=== PATIENT | female | born 1980 | race African-American/Black ===

== ENCOUNTER 2018-10-16 17:36 | Inpatient (IN) | payer MEDICAID ==
[~2018-10-16] VITALS: Ht 157.5 cm; Wt 77.1 kg
[2018-10-16] MEDS ORDERED: FUROSEMIDE40 MG ORAL (17:41)
[2018-10-16] MEDS ORDERED: NORVASC10 MG ORAL (17:41)
[2018-10-16] MEDS ORDERED: CARVEDILOL25 MG ORAL (17:41)
[2018-10-16] MEDS ORDERED: CEPHALEXIN500 M1 ORAL (17:41)
[2018-10-16] MEDS ORDERED: METHIMAZOLE10 MG PO (17:41)
[2018-10-16] MEDS ORDERED: LISINOPRIL20 MG ORAL (17:41)
--- NOTE | 2018-10-16 17:44 | Emergency Room Report ---
History of Present Illness General Chief Complaint: Abdominal Pain Source: Patient, EMS Present Illness HPI Patient was discharged after being admitted [facility] for abdominal pain. She's persisted in vomiting and having watery stools. She's taking antibiotics at this time. The pain is mainly in her left flank. Radiates down into her abdomen and groin. The pain is 10/10 aching and sometimes feels like spasms. She's not sure she vomiting blood but she says it' s been yellow in color which is throwing up. She's felt feverish and feels weak at this time. She's not sure what they found at the hospital. She had an abdominal CT. Also she was discharged on lasix. Rx bactrim, keflex which she took this morning. Review of discharge papers reveal mostly discussing the hyperthyroidism. She states some tests were still pending. H/O hyperthyroidism on methimazole H/O HTN On lasix Allergies: Coded Allergies: DIPHENHYDRAMINE (Verified Allergy, Unknown, 10/16/18) LATEX (Verified Allergy, Unknown, 10/16/18) Patient History Past Medical History: see triage record Social History: Denies: smoking Social History Narrative from home Reviewed Nursing Documentation: PMH: Agreed; PSxH: Agreed Nursing Documentation-PMH Hx Cardiac Problems: Yes - CHF Hx Hypertension: No - HYPERTHYROIDISM Review of Systems All Other Systems: negative except mentioned in HPI Physical Exam Vital Signs Date Time Temp Pulse Resp B/P (MAP) Pulse Ox O2 Delivery O2 Flow Rate FiO2 10/16/18 17:31 98.2 81 20 171/92 96 Room Air Sp02 EP Interpretation: reviewed, normal General Appearance: alert, GCS 15, mild distress Head: normocephalic Eyes: bilateral eye normal inspection, bilateral eye PERRL, bilateral eye EOMI , bilateral eye other - exopthalmus ENT: moist mucus membranes Neck: supple, tender - goiter which is not tender Respiratory: lungs clear, normal breath sounds Cardiovascular #1: regular rate, rhythm Cardiovascular #2: 2+ radial (R) Gastrointestinal: normal inspection, normal bowel sounds, no mass, non- distended, no rebound, guarding, tenderness - L abdomen, overweight Genitourinary: other - some CVA tenderness L Musculoskeletal: back normal, gait/station normal, normal range of motion Neurologic: alert, oriented x3, grossly normal Psychiatric: anxious Skin: normal inspection, warm/dry Medical Decision Making Diagnostic Impression: Primary Impression: Abdominal pain Qualified Codes: R10.9 - Unspecified abdominal pain Additional Impressions: Graves disease Vomiting Qualified Codes: R11.2 - Nausea with vomiting, unspecified Leukocytosis Qualified Codes: D72.828 - Other elevated white blood cell count Diarrhea Qualified Codes: R19.7 - Diarrhea, unspecified Hyperthyroidism CHF (congestive heart failure) Qualified Codes: I50.83 - High output heart failure Colitis ER Course Patient with left flank pain after recent discharge from the [facility]. I differential includes renal stone, diverticulitis, C. difficile colitis, gastroenteritis, pyelonephritis amongst others. Evaluation will be with EKG, chest x-ray, abdominal films and labs. Patient will be treated with IV hydration and Reglan and analgesia with fentanyl since she has adverse reactions to morphine. We will attempt to get the CT results of her abdomen from [facility]. Stool ordered for c. difficile. EKG without injury. CXR with some congestive changes. Labs with leukocytosis, elevated BNP, low TSH. Patient still with vomiting and increased pain here. Patient admitted to medical floor. Attempting to get a CT results. With high suspicion for C. difficile, Flagyl given IV. Patient had taken Bactrim and Keflex this morning. Still with pain. Not surgical abdomen but will consult. CT done 10/09 - no significant explanation for pain. Need to repeat. Can be done on floor. Elevated BNP and CXR suggest CHF, consider related to hyperthyroidism. Admit med Dr. Neil. Contact Dr. Camargo for consultation, though not surgical abdomen at this time. Laboratory Tests Test 10/16/18 17:45 White Blood Count 14.0 K/UL (4.8-10.8) H Red Blood Count 4.98 M/UL (4.20-5.40) Hemoglobin 13.4 G/DL (12.0-16.0) Hematocrit 41.4 % (37.0-47.0) Mean Corpuscular Volume 83 FL (80-99) Mean Corpuscular Hemoglobin 26.9 PG (27.0-31.0) L Mean Corpuscular Hemoglobin Concent 32.3 G/DL (32.0-36.0) Red Cell Distribution Width 13.8 % (11.6-14.8) Platelet Count 349 K/UL (150-450) Mean Platelet Volume 7.4 FL (6.5-10.1) Neutrophils (%) (Auto) % (45.0-75.0) Lymphocytes (%) (Auto) % (20.0-45.0) Monocytes (%) (Auto) % (1.0-10.0) Eosinophils (%) (Auto) % (0.0-3.0) Basophils (%) (Auto) % (0.0-2.0) Differential Total Cells Counted 100 Neutrophils % (Manual) 85 % (45-75) H Lymphocytes % (Manual) 12 % (20-45) L Monocytes % (Manual) 3 % (1-10) Eosinophils % (Manual) 0 % (0-3) Basophils % (Manual) 0 % (0-2) Band Neutrophils 0 % (0-8) Platelet Estimate Adequate Platelet Morphology Normal Red Blood Cell Morphology Normal Prothrombin Time 11.9 SEC (9.30-11.50) H Prothrombin Time INR 1.1 (0.9-1.1) PTT 30 SEC (23-33) Urine Color Pale yellow Urine Appearance Clear Urine pH 7 (4.5-8.0) Urine Specific [place] 1.005 (1.005-1.035) Urine Protein Negative (NEGATIVE) Urine Glucose (UA) Negative (NEGATIVE) Urine Ketones 3+ (NEGATIVE) H Urine Blood Negative (NEGATIVE) Urine Nitrite Negative (NEGATIVE) Urine Bilirubin Negative (NEGATIVE) Urine Urobilinogen Normal MG/DL (0.0-1.0) Urine Leukocyte Esterase Negative (NEGATIVE) Sodium Level 137 MMOL/L (136-145) Potassium Level 3.9 MMOL/L (3.5-5.1) Chloride Level 100 MMOL/L (98-107) Carbon Dioxide Level 26 MMOL/L (21-32) Anion Gap 11 mmol/L (5-15) Blood Urea Nitrogen 8 mg/dL (7-18) Creatinine 1.0 MG/DL (0.55-1.30) Estimate Glomerular Filtration Rate > 60 mL/min (>60) Glucose Level 102 MG/DL (74-106) Calcium Level 10.0 MG/DL (8.5-10.1) Total Bilirubin 1.0 MG/DL (0.2-1.0) Aspartate Amino Transferase (AST) 30 U/L (15-37) Alanine Aminotransferase (ALT) 22 U/L (12-78) Alkaline Phosphatase 229 U/L (46-116) H Total Protein 8.9 G/DL (6.4-8.2) H Albumin 3.2 G/DL (3.4-5.0) L Globulin 5.7 g/dL Albumin/Globulin Ratio 0.6 (1.0-2.7) L Lipase 130 U/L (73-393) Human Chorionic Gonadotropin, Qual Negative (NEGATIVE) EKG Diagnostic Results Rate: normal Rhythm: NSR ST Segments: no acute changes Rhythm Strip Diag. Results EP Interpretation: yes Rhythm: NSR, no PVC's, no ectopy Chest X-Ray Diagnostic Results Chest X-Ray Diagnostic Results : Chest X-Ray Ordered: Yes # of Views/Limited/Complete: 1 View Indication: Other EP Interpretation: Yes Interpretation: no consolidation, no effusion, no pneumothorax, other - increased mckenzie bilat Impression: Other Electronically Signed by: Electronically signed by Boubacar Randall MD Other X-Ray Diagnostic Results Other X-Ray Diagnostic Results : X-Ray ordered: abd # of Views/Limited Vs Complete: 2 View Indication: Pain Interpretation: nonspecific bowel gas, no sbo, other - paucity of gas Impression: Other Electronically Signed by: Electronically signed by Boubacar Randall MD CT/MRI/US Diagnostic Results CT/MRI/US Diagnostic Results : Imaging Test Ordered: abdomen/pelvis Impression Long segment severe inflammatory changes involving predominantly 2 loops of distal jejunum with marked mucosal thickening causing significant narrowing of the lumen, perienteric fat stranding, and small volume scattered free fluid. There is no pneumatosis, obstruction, or abscess. Etiology is favored infectious or inflammatory. Pancolonic diverticulosis without diverticulitis. No acute process in the solid organs. Last Vital Signs Date Time Temp Pulse Resp B/P (MAP) Pulse Ox O2 Delivery O2 Flow Rate FiO2 10/17/18 00:08 Room Air 10/16/18 21:00 98.4 83 20 152/88 100 Status: improved Disposition: ADMITTED INPATIENT Condition: Serious Boubacar Randall MD Oct 16, 2018 17:44
[2018-10-16 17:45] VITALS: BP 171/92
[2018-10-16] MEDS ORDERED: fentaNYL 100 mcg/2 mL IV ONE ×2 (17:45→19:45)
[2018-10-16] MEDS ORDERED: Metoclopramide 10mg/2ml Inj IVP ONE (17:45)
[2018-10-16 18:16] LABS: APPEARANCE,URINE CLEAR; BILIRUBIN, URINE NEGATIVE (NEGATIVE); COLOR,URINE PALE YELLOW; GLUCOSE, URINE (UA) NEGATIVE (NEGATIVE); KETONES,URINE 3+ (NEGATIVE); LEUKOCYTE ESTERASE ,URINE NEGATIVE (NEGATIVE); NITRITE,URINE NEGATIVE (NEGATIVE); PH,URINE 7 (4.5-8.0); PROTEIN,URINE NEGATIVE (NEGATIVE); UROBILINOGEN,URINE NORMAL MG/DL (0.0-1.0)
[2018-10-16 18:24] LABS: ANION GAP 11 mmol/L (5-15); BLOOD UREA NITROGEN 8 mg/dL (7-18); CARBON DIOXIDE 26 MMOL/L (21-32); CHLORIDE 100 MMOL/L (98-107); POTASSIUM 3.9 MMOL/L (3.5-5.1); SODIUM 137 MMOL/L (136-145)
[2018-10-16 18:28] LABS: HEMATOCRIT 41.4 % (37.0-47.0); HEMOGLOBIN 13.4 G/DL (12.0-16.0); MEAN CORPUSCULAR VOLUME 83 FL (80-99); PLATELET COUNT 349 K/UL (150-450); RED BLOOD COUNT 4.98 M/UL (4.20-5.40); RED CELL DISTRIBUTION WIDTH 13.8 % (11.6-14.8)
[2018-10-16 18:29] VITALS: BP 166/90
[2018-10-16 18:33] LABS: INR 1.1 (0.9-1.1)
[2018-10-16 18:35] LABS: ALANINE AMINOTRANSFERASE 22 U/L (12-78); ALBUMIN 3.2 G/DL (3.4-5.0); ALBUMIN/GLOBULIN RATIO 0.6 (1.0-2.7); ALKALINE PHOSPHATASE 229 U/L (46-116); ASPARTATE AMINO TRANSFERASE 30 U/L (15-37)
--- NOTE | 2018-10-16 18:44 | NUR ---
ED Nurse Note: pt came in c/o abd pain and left flank pain . pt denies any wounds has hyperthyroidism and a goiter. ermd robbin done blood and urine sent pt medicated vss will monitor.
--- NOTE | 2018-10-16 19:01 | NUR ---
ED Nurse Note: pt down to ct
--- NOTE | 2018-10-16 19:08 | NUR ---
HAND-OFF: Report given to Annie colse.
--- NOTE | 2018-10-16 19:15 | NUR ---
ED Nurse Note: RECIEVED REPORT TO RESUME CARE, PT JUST RETURNING FROM IMAGING, PT PLACED ON CARDIAC MONITORING, PT IS IN BED AWAKE AND ALERT, HAS PATENT IV LINE IN RIGHT AC, PT HERE FOR ABD PAIN AND STATES PAIN AT 7/10 AND SHARP, PT HAD EMESIS SOON RETURNED, ABOUT 300ML OF FOOD LIKE CONTENTS, MD INFORMED, WILL RESUME CARE ORDERED, MEDICATE FOR PAIN AND EMESIS AND CLOSELY MONITOR.
[2018-10-16 21:00] VITALS: BP 152/88
--- NOTE | 2018-10-16 21:00 | NUR ---
ED Nurse Note: PT CONTINUES TO REST IN BED, AWAKE AND ALERT, ON CARDIAC MONITORING, PT IV SITE PATENT WITH FLUIDS INFUSING ORDERED, PT RE-MEDICATED FOR PAIN, MEDS NOT EFFECTIVE MD AWARE, PT DENIES CP, NO SOB OR LABORED BREATHING,PT IS TO BE ADMITTED FOR PAIN, WILL CONTINUE TO CLOSELY MONITOR AND PREPRE FOR ADMISSION.
[2018-10-16] MEDS ORDERED: Hydromorphone 0.5mg/0.5ml inj IVP ONE (21:45)
[2018-10-16] MEDS ORDERED: Miralax 17gm pkt ORAL PRN (22:00)
[2018-10-16] MEDS ORDERED: Morphine Sulfate 2mg/ml Inj(IV/IM USE ONLY) IVP PRN (22:00)
[2018-10-16] MEDS ORDERED: Isovue-300 100ml vial INJ PRN (22:00)
[2018-10-16] MEDS ORDERED: Mylanta II UD 30ml ORAL PRN (22:00)
[2018-10-16] MEDS ORDERED: Nitroglycerin Subl 0.4mg tab SL PRN (22:00)
--- NOTE | 2018-10-16 22:15 | NUR ---
ED Nurse Note: PT TO HAVE ORDERED CT-SCAN, STATES TO HOLD ADMISSION UNTIL PT STARTS DRINKING ORAL CONTRAST, IMAGING ARRIVED AND PT BEGAN TO DRINK ORAL CONTRAST, WILL CALL FOR REPORT AND SEND TO FLOOR BED AND INFORM ONCOMING RN THAT PT WILL HAVE IMAGES DONE AT 1145 TONIGHT.
[2018-10-16] MEDS: D5 1/2NS 1,000 ML IV SCH (22:30)
--- NOTE | 2018-10-16 23:15 | NUR ---
ED Nurse Note: PT BEING ADMITTED TO FLOOR BED, REPORT CALLED TO AKASH RUBIO ON UNIT, ALSO INFORMED THAT PT NEEDS TO DRINK REMAINING ORAL CONTRAST FOR 1145 CT-SCAN, PT IN BED AWAKE AND ALERT, IV SITE PATENT WITH ORDERED FLUIDS INFUSING, TOLERATING WELL, PT BELONGINGS LIST COMPLETED AND ADMITTING SWABS COMPLETED, PT BEING TAKEN TO FLOOR UNIT VIA GURNEY WITH ER-TE[facility], NAD NOTED DURING PT TRANSPORT TO UNIT.
--- NOTE | 2018-10-16 23:41 | NUR ---
NURSE NOTES: Received patient from ER, report given by Annie BUSTOS, patient is awake, a bit sedated, oriented, alert. Able to make her needs known, is scheduled for a CT of an abdomen at 2345, patient is finishing up drinking contrast. Belongings list checked and verified, call light is within reach, bed is in low position, locked, alarm is on. Patient is oriented to the unit. Will continue to monitor for safety and comfort.
[2018-10-17 04:00] VITALS: BP 143/73
[2018-10-17 06:34] LABS: BASOPHILS % (AUTO) 3.2 % (0.0-2.0); EOSINOPHILS % (AUTO) 0.1 % (0.0-3.0); HEMATOCRIT 37.3 % (37.0-47.0); HEMOGLOBIN 12.3 G/DL (12.0-16.0); LYMPHOCYTES % (AUTO) 10.4 % (20.0-45.0); MEAN CORPUSCULAR VOLUME 85 FL (80-99); MONOCYTES % (AUTO) 5.2 % (1.0-10.0); NEUTROPHILS % (AUTO) 81.2 % (45.0-75.0); PLATELET COUNT 298 K/UL (150-450); RED BLOOD COUNT 4.41 M/UL (4.20-5.40); WHITE BLOOD COUNT 13.4 K/UL (4.8-10.8)
[2018-10-17 06:39] LABS: ANION GAP 13 mmol/L (5-15); BLOOD UREA NITROGEN 7 mg/dL (7-18); CALCIUM 8.7 MG/DL (8.5-10.1); CARBON DIOXIDE 24 MMOL/L (21-32); CHLORIDE 102 MMOL/L (98-107); CREATININE 0.8 MG/DL (0.55-1.30); POTASSIUM 4.3 MMOL/L (3.5-5.1); SODIUM 139 MMOL/L (136-145)
[2018-10-17 06:55] LABS: ALANINE AMINOTRANSFERASE 20 U/L (12-78); ALBUMIN 2.7 G/DL (3.4-5.0); ALBUMIN/GLOBULIN RATIO 0.6 (1.0-2.7); ALKALINE PHOSPHATASE 173 U/L (46-116); AMYLASE 18 U/L (25-115); ASPARTATE AMINO TRANSFERASE 39 U/L (15-37)
--- NOTE | 2018-10-17 06:59 | NUR ---
HAND-OFF: Report given to Flavia BUSTOS.
--- NOTE | 2018-10-17 07:40 | NUR ---
NURSE NOTES: pt received sleeping. Easy to arouse. Call light in reach. No complaints of pain nausea or vomiting at this time
[2018-10-17 08:00] VITALS: BP 139/77
--- NOTE | 2018-10-17 08:49 | Consultation ---
History of Present Illness General Date patient seen: Oct 17, 2018 Chief Complaint: Abdominal Pain Present Illness HPI 38 y/o F with hx of HTN, hyperthyroidism on methimazole, CHF presents to ED on with vomiting and having 1 episode of watery stools. Patient has been recently discharged from [facility] for a buttock pilonidal cyst/ abscess (drained by itself) and CHF exacerbation; has gained 50 pounds of water and was given lasix and abx (bactrim and Keflex) for a total of 7 days. Patient refers that she has been trying to keep a fluid restricted diet and 3g sodium and that she ate something with high sugar content and she may have not drink a lot of water and she started to have abd discomfort, nausea and vomiting. 1 episode of diarrhea day of admission. No episodes today. Patient refers feeling better now after IVF hydration. Allergies: Coded Allergies: DIPHENHYDRAMINE (Verified Allergy, Unknown, 10/16/18) LATEX (Verified Allergy, Unknown, 10/16/18) Medication History Scheduled Amlodipine Besylate (Norvasc), 10 MG ORAL DAILY, (Reported) Carvedilol* (Carvedilol*), 25 MG ORAL EVERY 12 HOURS, (Reported) Cephalexin* (Cephalexin*), 500 MG ORAL EVERY 6 HOURS, (Reported) Furosemide* (Lasix*), 40 MG ORAL DAILY, (Reported) Lisinopril (Lisinopril*), 20 MG ORAL DAILY, (Reported) Methimazole (Methimazole), 10 MG PO BID, (Reported) Patient History Healthcare decision maker Resuscitation status Full Code Advanced Directive on File No Patient History Narrative Pmhx: as above Shx: reviewed Fhx: non contributory Review of Systems All Other Systems: negative except mentioned in HPI Physical Exam Physical Exam Narrative General Appearance: alert, GCS 15, mild distress Head: normocephalic Eyes: bilateral eye normal inspection, bilateral eye PERRL, bilateral eye EOMI , bilateral eye other - exopthalmus ENT: moist mucus membranes Neck: supple, tender - goiter which is not tender Respiratory: lungs clear, normal breath sounds Cardiovascular : regular rate, rhythm Gastrointestinal: normal inspection, normal bowel sounds, no mass, non- distended, no rebound, guarding, tenderness - L abdomen, overweight Genitourinary: other - some CVA tenderness L Musculoskeletal: back normal, gait/station normal, normal range of motion Neurologic: alert, oriented x3, grossly normal Psychiatric: anxious Skin: normal inspection, warm/dry Last 24 Hour Vital Signs Date Time Temp Pulse Resp B/P (MAP) Pulse Ox O2 Delivery O2 Flow Rate FiO2 10/17/18 04:00 98.7 18 143/73 (96) 10/17/18 00:08 Room Air 10/16/18 23:20 98.4 83 20 152/88 100 Room Air 10/16/18 21:00 98.4 83 20 152/88 100 Room Air 10/16/18 20:20 98.2 10/16/18 18:29 98.2 80 25 166/90 100 Room Air 10/16/18 18:24 98.2 10/16/18 17:45 81 20 Room Air 10/16/18 17:45 98.2 20 171/92 96 Room Air 10/16/18 17:31 98.2 81 20 171/92 96 Room Air Intake and Output 10/16/18 10/17/18 19:00 07:00 # Voids 1 Laboratory Tests Test 10/16/18 17:45 10/17/18 05:35 White Blood Count 14.0 K/UL (4.8-10.8) H 13.4 K/UL (4.8-10.8) H Red Blood Count 4.98 M/UL (4.20-5.40) 4.41 M/UL (4.20-5.40) Hemoglobin 13.4 G/DL (12.0-16.0) 12.3 G/DL (12.0-16.0) Hematocrit 41.4 % (37.0-47.0) 37.3 % (37.0-47.0) Mean Corpuscular Volume 83 FL (80-99) 85 FL (80-99) Mean Corpuscular Hemoglobin 26.9 PG (27.0-31.0) L 27.8 PG (27.0-31.0) Mean Corpuscular Hemoglobin Concent 32.3 G/DL (32.0-36.0) 32.9 G/DL (32.0-36.0) Red Cell Distribution Width 13.8 % (11.6-14.8) 14.0 % (11.6-14.8) Platelet Count 349 K/UL (150-450) 298 K/UL (150-450) Mean Platelet Volume 7.4 FL (6.5-10.1) 8.7 FL (6.5-10.1) Neutrophils (%) (Auto) % (45.0-75.0) 81.2 % (45.0-75.0) H Lymphocytes (%) (Auto) % (20.0-45.0) 10.4 % (20.0-45.0) L Monocytes (%) (Auto) % (1.0-10.0) 5.2 % (1.0-10.0) Eosinophils (%) (Auto) % (0.0-3.0) 0.1 % (0.0-3.0) Basophils (%) (Auto) % (0.0-2.0) 3.2 % (0.0-2.0) H Differential Total Cells Counted 100 Neutrophils % (Manual) 85 % (45-75) H Lymphocytes % (Manual) 12 % (20-45) L Monocytes % (Manual) 3 % (1-10) Eosinophils % (Manual) 0 % (0-3) Basophils % (Manual) 0 % (0-2) Band Neutrophils 0 % (0-8) Platelet Estimate Adequate Platelet Morphology Normal Red Blood Cell Morphology Normal Prothrombin Time 11.9 SEC (9.30-11.50) H Prothromb Time International Ratio 1.1 (0.9-1.1) Activated Partial Thromboplast Time 30 SEC (23-33) 27 SEC (23-33) Urine Color Pale yellow Urine Appearance Clear Urine pH 7 (4.5-8.0) Urine Specific [place] 1.005 (1.005-1.035) Urine Protein Negative (NEGATIVE) Urine Glucose (UA) Negative (NEGATIVE) Urine Ketones 3+ (NEGATIVE) H Urine Blood Negative (NEGATIVE) Urine Nitrite Negative (NEGATIVE) Urine Bilirubin Negative (NEGATIVE) Urine Urobilinogen Normal MG/DL (0.0-1.0) Urine Leukocyte Esterase Negative (NEGATIVE) Sodium Level 137 MMOL/L (136-145) 139 MMOL/L (136-145) Potassium Level 3.9 MMOL/L (3.5-5.1) 4.3 MMOL/L (3.5-5.1) Chloride Level 100 MMOL/L (98-107) 102 MMOL/L (98-107) Carbon Dioxide Level 26 MMOL/L (21-32) 24 MMOL/L (21-32) Anion Gap 11 mmol/L (5-15) 13 mmol/L (5-15) Blood Urea Nitrogen 8 mg/dL (7-18) 7 mg/dL (7-18) Creatinine 1.0 MG/DL (0.55-1.30) 0.8 MG/DL (0.55-1.30) Estimat Glomerular Filtration Rate > 60 mL/min (>60) > 60 mL/min (>60) Glucose Level 102 MG/DL (74-106) 68 MG/DL (74-106) L Calcium Level 10.0 MG/DL (8.5-10.1) 8.7 MG/DL (8.5-10.1) Total Bilirubin 1.0 MG/DL (0.2-1.0) 1.0 MG/DL (0.2-1.0) Aspartate Amino Transf (AST/SGOT) 30 U/L (15-37) 39 U/L (15-37) H Alanine Aminotransferase (ALT/SGPT) 22 U/L (12-78) 20 U/L (12-78) Alkaline Phosphatase 229 U/L (46-116) H 173 U/L (46-116) H Pro-B-Type Natriuretic Peptide 1155 pg/mL (0-125) H Total Protein 8.9 G/DL (6.4-8.2) H 7.4 G/DL (6.4-8.2) Albumin 3.2 G/DL (3.4-5.0) L 2.7 G/DL (3.4-5.0) L Globulin 5.7 g/dL 4.7 g/dL Albumin/Globulin Ratio 0.6 (1.0-2.7) L 0.6 (1.0-2.7) L Lipase 130 U/L (73-393) 102 U/L (73-393) Thyroid Stimulating Hormone (TSH) 0.021 uiU/mL (0.358-3.740) Human Chorionic Gonadotropin, Qual Negative (NEGATIVE) Amylase Level 18 U/L (25-115) L Height (Feet): 5 Height (Inches): 2.00 Weight (Pounds): 170 Medications Current Medications Medications (Trade) Dose Ordered Sig/[place] Route PRN Reason Start Time Stop Time Status Last Admin Dose Admin Acetaminophen (Tylenol) 650 mg Q4H PRN ORAL fever 10/16/18 22:00 11/15/18 21:59 Al Hydroxide/Mg Hydroxide (Mylanta II) 30 ml Q6H PRN ORAL dyspepsia 10/16/18 22:00 11/15/18 21:59 Amlodipine Besylate (Norvasc) 10 mg DAILY ORAL 10/17/18 09:00 11/16/18 08:59 Carvedilol (Coreg) 25 mg EVERY 12 HOURS ORAL 10/17/18 09:00 11/16/18 08:59 Dextrose (Dextrose 50%) 25 ml Q30M PRN IV Hypoglycemia 10/16/18 22:00 11/15/18 21:59 Dextrose (Dextrose 50%) 50 ml Q30M PRN IV Hypoglycemia 10/16/18 22:00 11/15/18 21:59 Dextrose/Sodium Chloride 1,000 ml @ 75 mls/hr [id number] IV 10/16/18 21:48 11/15/18 21:47 10/16/18 22:30 Heparin Sodium (Porcine) (Heparin 5000 units/ml) 5,000 units EVERY 12 HOURS SUBQ 10/17/18 09:00 11/16/18 08:59 Lisinopril (Prinivil) 20 mg DAILY ORAL 10/17/18 09:00 11/16/18 08:59 Morphine Sulfate (Morphine Sulfate) 2 mg Q4H PRN IVP severe Pain (Pain Scale 7-10) 10/16/18 22:00 10/23/18 21:59 Nitroglycerin (Ntg) 0.4 mg Q5M X 3 DOSES PRN SL Prn Chest Pain 10/16/18 22:00 11/15/18 21:59 Ondansetron HCl (Zofran) 4 mg Q6H PRN IVP Nausea & Vomiting 10/16/18 22:00 11/15/18 21:59 Pantoprazole (Protonix) 40 mg DAILY IVP 10/17/18 09:00 11/16/18 08:59 Polyethylene Glycol (Miralax) 17 gm HSPRN PRN ORAL Constipation 10/16/18 22:00 11/15/18 21:59 Temazepam (Restoril) 15 mg HSPRN PRN ORAL Insomnia 10/16/18 22:00 10/23/18 21:59 Assessment/Plan Status Narrative Sp02 EP Interpretation: reviewed, normal General Appearance: alert, GCS 15, mild distress Head: normocephalic Eyes: bilateral eye normal inspection, bilateral eye PERRL, bilateral eye EOMI , bilateral eye other - exopthalmus ENT: moist mucus membranes Neck: supple, tender - goiter which is not tender Respiratory: lungs clear, normal breath sounds Cardiovascular #1: regular rate, rhythm Cardiovascular #2: 2+ radial (R) Gastrointestinal: normal inspection, normal bowel sounds, no mass, non- distended, no rebound, guarding, tenderness - L abdomen, overweight Genitourinary: other - some CVA tenderness L Musculoskeletal: back normal, gait/station normal, normal range of motion Neurologic: alert, oriented x3, grossly normal Psychiatric: anxious Skin: normal inspection, warm/dry Abx: Assessment: Plan: -f/u cx -Monitor CBC/CMP, temperatures Thank you for this consultation. Will continue to follow along with you. Discussed with RN. Pmhx: as above Shx: reviewed Fhx: non contributory Diagnosis [place] I: Abx: Flagyl x1 10/16 Assessment: Abd pain/Vomiting- improving- likely in the setting of dehydration- r/o intrabdominal pathology -CT abd/p p Diarrhea x1- seems abx related but r/o Cdiff -Cdiff p Afebrile Leukocytosis; improving- ?reactive -u/a neg -CXR: p Recent buttock pilonidal cyst/abscess; improving HTN hyperthyroidism on methimazole Plan: -Will finish her abx course for pilonidal cyst/abscess w 1 day of abx: Doxycycline and Augmentin -f/u cx -Monitor CBC/CMP, temperatures -cdiff, stool cx, influenza sc -f/u CT abd/p Thank you for this consultation. Will continue to follow along with you. Discussed with Lteicia Gayle M.D. Oct 17, 2018 08:49
[2018-10-17] MEDS: Heparin 5000 units/ml inj SUBQ SCH ×2 (09:00→21:00)
[2018-10-17] MEDS: Pantoprazole Inj IVP SCH (09:00)
--- NOTE | 2018-10-17 09:34 | Diagnostic Imaging Report ---
Indication: Abdominal pain Technique: CT of the abdomen and pelvis utilizing automated exposure control with intravenous contrast. Venous scanning performed. Axial, sagittal and coronal reformats presented. CT dose: Total DLP 969.21 mGycm; CTDI vol 19.75 mGy Comparison: None Findings: Lung bases are without focal airspace consolidation, pleural effusion or pneumothorax. Heart size within normal limits. No pericardial effusion. Liver is normal in size and contour. Hepatic attenuation is homogeneous. No focal hepatic mass lesion appreciated on this single phase exam. Hepatic veins and portal veins appear patent. Gallbladder is unremarkable, without CT evident gallstones. Inflammatory changes. Spleen, adrenal glands and pancreas unremarkable. Kidneys enhance symmetrically. There is no urinary tract stone or hydronephrosis bilaterally. The bladder is decompressed, limiting its evaluation. Bladder wall thickening likely related to underdistention. Uterus and adnexa are unremarkable in appearance. There is long segment severe inflammatory changes involving loops of the distal jejunum with marked mucosal thickening causing significant narrowing of the lumen as well as marked surrounding inflammatory fat stranding and small volume of ascites. There is no dilatation of upstream small bowel loops to suggest obstruction at this time. There is no pneumatosis intestinalis, free intraperitoneal air or portal venous gas. No well-defined/drainable fluid collection to suggest abscess. The appendix is normal in caliber with air in its lumen. There is colonic diverticulosis without evidence of acute diverticulitis. There is a tiny fat-containing umbilical hernia. Small mesenteric and peritoneal lymph nodes are noted to be reactive in etiology. No pathologically enlarged by imaging size criteria. Abdominal aorta is normal in caliber. Mild degenerative changes noted in the spine. No acute osseous abnormality identified. IMPRESSION: * Long segment severe inflammatory changes involving loops of the jejunum with marked mucosal thickening with associated narrowing of the lumen. No evidence of associated bowel obstruction at this time. Small amount of ascites is noted without well-defined/drainable fluid collection to suggest abscess. No pneumatosis intestinalis or free intraperitoneal air. Urology is favored to be infectious or inflammatory. Correlation recommended. * Diverticulosis without evidence of acute diverticulitis. * Normal appendix. * Apparent bladder wall thickening likely related to underdistention. Correlation with urinalysis recommended to exclude cystitis. This corresponds with the statrad preliminary report. The CT scanner at [facility] is accredited by the [employer] and the scans are performed using protocols designed to limit radiation exposure to as low as reasonably achievable to attain images of sufficient resolution adequate for diagnostic evaluation.
--- NOTE | 2018-10-17 09:36 | Diagnostic Imaging Report ---
Indication: Chest and abdominal pain Technique: PA view of the chest Comparison: None Findings: Heart size and mediastinal contours are within normal limits. There is no focal airspace consolidation. No pleural effusion or pneumothorax. Pulmonary vascularity is within normal limits. There is no evidence of pulmonary edema. There are mild degenerative changes of the spine. No acute osseous abnormality identified. Imaged upper abdomen grossly unremarkable. Impression: No radiographic evidence of acute cardiopulmonary disease.
--- NOTE | 2018-10-17 09:38 | Diagnostic Imaging Report ---
Indication: Abdominal pain Technique: 2 views of the abdomen Comparison: None Findings: Nonspecific, not overtly obstructive bowel gas pattern. No definite evidence to suggest free intraperitoneal air however evaluation for such is limited on the supine views. There are degenerative changes in the spine. No acute osseous abnormality is identified. No radiopaque foreign body. IMPRESSION: Nonspecific, not overtly obstructive bowel gas pattern. More sensitive evaluation can be obtained with CT of the abdomen as clinically indicated.
--- NOTE | 2018-10-17 10:02 | NUR ---
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 COLITIS . DIARRHEA VS: BP 171/92, P 83, T 98.4, RR 20, SpO2 100 IS:NS x1L IV FENTANYL CITRATE 50mcg IV PEPCID 20mg IVP REGLAN 10mg IVP ZOFRAN 4mg IVP METRONIDAZOLE 100ml IVPB D5/NS x1L IV ADMITTED TO MED/SURG DCP: RETURN HOME
[2018-10-17] MEDS: D5 1/2NS 1,000 ML IV SCH (11:08)
[2018-10-17] MEDS: Lisinopril 20mg tab ORAL SCH (11:24)
[2018-10-17] MEDS: Carvedilol 25mg Tab ORAL SCH ×2 (11:24→20:35)
[2018-10-17] MEDS: Doxycycline Monohydrate 100mg ORAL SCH ×2 (11:25→20:34)
[2018-10-17 12:00] VITALS: BP 138/77
--- NOTE | 2018-10-17 13:33 | Cardiology Report ---
APPROVED REPORT EKG Measurement Heart [id number] [place] [id number] [id number] Normal sinus rhythm Possible Left atrial enlargement Low voltage QRS Cannot rule out Anteroseptal infarct, age undetermined Abnormal ECG
--- NOTE | 2018-10-17 14:15 | Consultation ---
History of Present Illness General Date patient seen: Oct 17, 2018 Chief Complaint: Abdominal Pain Present Illness HPI 38 year old female with hx of HTN, CHF, hyperthyroidism on methimazole, presents to ED with vomiting and having 1 episode of watery stools. she c.o abdominal discomfort, nausea and vomiting. 1 episode of diarrhea day of admission. No episodes today. Her pain is controlled now, which she contributes to morphine she got earlier. Her CT of abdomen showed extensive inflammatory process in Jejunum. Allergies: Coded Allergies: DIPHENHYDRAMINE (Verified Allergy, Unknown, 10/16/18) LATEX (Verified Allergy, Unknown, 10/16/18) Medication History Scheduled Amlodipine Besylate (Norvasc), 10 MG ORAL DAILY, (Reported) Carvedilol* (Carvedilol*), 25 MG ORAL EVERY 12 HOURS, (Reported) Cephalexin* (Cephalexin*), 500 MG ORAL EVERY 6 HOURS, (Reported) Furosemide* (Lasix*), 40 MG ORAL DAILY, (Reported) Lisinopril (Lisinopril*), 20 MG ORAL DAILY, (Reported) Methimazole (Methimazole), 10 MG PO BID, (Reported) Patient History Healthcare decision maker Resuscitation status Full Code Advanced Directive on File No Past Medical/Surgical History Past Medical/Surgical History: (1) Hyperthyroidism (2) CHF (congestive heart failure) (3) Graves disease Review of Systems All Other Systems: negative except mentioned in HPI Physical Exam General Appearance: WD/WN, no apparent distress Lines, tubes and drains: peripheral HEENT: normocephalic, atraumatic Neck: non-tender, normal alignment Cardiovascular/Chest: normal peripheral pulses, normal rate, no JVD Abdomen: normal bowel sounds Genitourinary/Rectal: normal genital exam Extremities: non-tender Last 24 Hour Vital Signs Date Time Temp Pulse Resp B/P (MAP) Pulse Ox O2 Delivery O2 Flow Rate FiO2 10/17/18 11:25 90 138/78 10/17/18 11:24 138/78 10/17/18 11:24 90 138/78 10/17/18 04:00 98.7 18 143/73 (96) 10/17/18 00:08 Room Air 10/16/18 23:20 98.4 83 20 152/88 100 Room Air 10/16/18 21:00 98.4 83 20 152/88 100 Room Air 10/16/18 20:20 98.2 10/16/18 18:29 98.2 80 25 166/90 100 Room Air 10/16/18 18:24 98.2 10/16/18 17:45 81 20 Room Air 10/16/18 17:45 98.2 20 171/92 96 Room Air 10/16/18 17:31 98.2 81 20 171/92 96 Room Air Intake and Output 10/16/18 10/17/18 19:00 07:00 # Voids 1 Laboratory Tests Test 10/16/18 17:45 10/17/18 05:35 White Blood Count 14.0 K/UL (4.8-10.8) H 13.4 K/UL (4.8-10.8) H Red Blood Count 4.98 M/UL (4.20-5.40) 4.41 M/UL (4.20-5.40) Hemoglobin 13.4 G/DL (12.0-16.0) 12.3 G/DL (12.0-16.0) Hematocrit 41.4 % (37.0-47.0) 37.3 % (37.0-47.0) Mean Corpuscular Volume 83 FL (80-99) 85 FL (80-99) Mean Corpuscular Hemoglobin 26.9 PG (27.0-31.0) L 27.8 PG (27.0-31.0) Mean Corpuscular Hemoglobin Concent 32.3 G/DL (32.0-36.0) 32.9 G/DL (32.0-36.0) Red Cell Distribution Width 13.8 % (11.6-14.8) 14.0 % (11.6-14.8) Platelet Count 349 K/UL (150-450) 298 K/UL (150-450) Mean Platelet Volume 7.4 FL (6.5-10.1) 8.7 FL (6.5-10.1) Neutrophils (%) (Auto) % (45.0-75.0) 81.2 % (45.0-75.0) H Lymphocytes (%) (Auto) % (20.0-45.0) 10.4 % (20.0-45.0) L Monocytes (%) (Auto) % (1.0-10.0) 5.2 % (1.0-10.0) Eosinophils (%) (Auto) % (0.0-3.0) 0.1 % (0.0-3.0) Basophils (%) (Auto) % (0.0-2.0) 3.2 % (0.0-2.0) H Differential Total Cells Counted 100 Neutrophils % (Manual) 85 % (45-75) H Lymphocytes % (Manual) 12 % (20-45) L Monocytes % (Manual) 3 % (1-10) Eosinophils % (Manual) 0 % (0-3) Basophils % (Manual) 0 % (0-2) Band Neutrophils 0 % (0-8) Platelet Estimate Adequate Platelet Morphology Normal Red Blood Cell Morphology Normal Prothrombin Time 11.9 SEC (9.30-11.50) H Prothromb Time International Ratio 1.1 (0.9-1.1) Activated Partial Thromboplast Time 30 SEC (23-33) 27 SEC (23-33) Urine Color Pale yellow Urine Appearance Clear Urine pH 7 (4.5-8.0) Urine Specific [place] 1.005 (1.005-1.035) Urine Protein Negative (NEGATIVE) Urine Glucose (UA) Negative (NEGATIVE) Urine Ketones 3+ (NEGATIVE) H Urine Blood Negative (NEGATIVE) Urine Nitrite Negative (NEGATIVE) Urine Bilirubin Negative (NEGATIVE) Urine Urobilinogen Normal MG/DL (0.0-1.0) Urine Leukocyte Esterase Negative (NEGATIVE) Sodium Level 137 MMOL/L (136-145) 139 MMOL/L (136-145) Potassium Level 3.9 MMOL/L (3.5-5.1) 4.3 MMOL/L (3.5-5.1) Chloride Level 100 MMOL/L (98-107) 102 MMOL/L (98-107) Carbon Dioxide Level 26 MMOL/L (21-32) 24 MMOL/L (21-32) Anion Gap 11 mmol/L (5-15) 13 mmol/L (5-15) Blood Urea Nitrogen 8 mg/dL (7-18) 7 mg/dL (7-18) Creatinine 1.0 MG/DL (0.55-1.30) 0.8 MG/DL (0.55-1.30) Estimat Glomerular Filtration Rate > 60 mL/min (>60) > 60 mL/min (>60) Glucose Level 102 MG/DL (74-106) 68 MG/DL (74-106) L Calcium Level 10.0 MG/DL (8.5-10.1) 8.7 MG/DL (8.5-10.1) Total Bilirubin 1.0 MG/DL (0.2-1.0) 1.0 MG/DL (0.2-1.0) Aspartate Amino Transf (AST/SGOT) 30 U/L (15-37) 39 U/L (15-37) H Alanine Aminotransferase (ALT/SGPT) 22 U/L (12-78) 20 U/L (12-78) Alkaline Phosphatase 229 U/L (46-116) H 173 U/L (46-116) H Pro-B-Type Natriuretic Peptide 1155 pg/mL (0-125) H Total Protein 8.9 G/DL (6.4-8.2) H 7.4 G/DL (6.4-8.2) Albumin 3.2 G/DL (3.4-5.0) L 2.7 G/DL (3.4-5.0) L Globulin 5.7 g/dL 4.7 g/dL Albumin/Globulin Ratio 0.6 (1.0-2.7) L 0.6 (1.0-2.7) L Lipase 130 U/L (73-393) 102 U/L (73-393) Thyroid Stimulating Hormone (TSH) 0.021 uiU/mL (0.358-3.740) Human Chorionic Gonadotropin, Qual Negative (NEGATIVE) Amylase Level 18 U/L (25-115) L Height (Feet): 5 Height (Inches): 2.00 Weight (Pounds): 170 Medications Current Medications Medications (Trade) Dose Ordered Sig/Candelaria Route PRN Reason Start Time Stop Time Status Last Admin Dose Admin Acetaminophen (Tylenol) 650 mg Q4H PRN ORAL fever 10/16/18 22:00 11/15/18 21:59 Al Hydroxide/Mg Hydroxide (Mylanta II) 30 ml Q6H PRN ORAL dyspepsia 10/16/18 22:00 11/15/18 21:59 Amlodipine Besylate (Norvasc) 10 mg DAILY ORAL 10/17/18 09:00 11/16/18 08:59 10/17/18 11:25 Amoxicillin/ Clavulanate Potassium (Augmentin) 500 mg Q12HR ORAL 10/17/18 11:00 10/24/18 10:59 10/17/18 13:55 Carvedilol (Coreg) 25 mg EVERY 12 HOURS ORAL 10/17/18 09:00 11/16/18 08:59 10/17/18 11:24 Dextrose (Dextrose 50%) 25 ml Q30M PRN IV Hypoglycemia 10/16/18 22:00 11/15/18 21:59 Dextrose (Dextrose 50%) 50 ml Q30M PRN IV Hypoglycemia 10/16/18 22:00 11/15/18 21:59 Dextrose/Sodium Chloride 1,000 ml @ 75 mls/hr [id number] IV 10/16/18 21:48 11/15/18 21:47 10/16/18 22:30 Doxycycline Monohydrate (Vibramycin) 100 mg EVERY 12 HOURS ORAL 10/17/18 10:00 10/18/18 09:59 10/17/18 11:25 Heparin Sodium (Porcine) (Heparin 5000 units/ml) 5,000 units EVERY 12 HOURS SUBQ 10/17/18 09:00 11/16/18 08:59 Lisinopril (Prinivil) 20 mg DAILY ORAL 10/17/18 09:00 11/16/18 08:59 10/17/18 11:24 Morphine Sulfate (Morphine Sulfate) 2 mg Q4H PRN IVP severe Pain (Pain Scale 7-10) 10/16/18 22:00 10/23/18 21:59 Nitroglycerin (Ntg) 0.4 mg Q5M X 3 DOSES PRN SL Prn Chest Pain 10/16/18 22:00 11/15/18 21:59 Ondansetron HCl (Zofran) 4 mg Q6H PRN IVP Nausea & Vomiting 10/16/18 22:00 11/15/18 21:59 Pantoprazole (Protonix) 40 mg DAILY IVP 10/17/18 09:00 11/16/18 08:59 Polyethylene Glycol (Miralax) 17 gm HSPRN PRN ORAL Constipation 10/16/18 22:00 11/15/18 21:59 Temazepam (Restoril) 15 mg HSPRN PRN ORAL Insomnia 10/16/18 22:00 10/23/18 21:59 Assessment/Plan Problem List: (1) Intractable abdominal pain ICD Codes: R10.9 - Unspecified abdominal pain SNOMED: 51707475, 783341211 (2) Enteritis ICD Codes: K52.9 - Noninfective gastroenteritis and colitis, unspecified SNOMED: 83532195 (3) Diarrhea ICD Codes: R19.7 - Diarrhea, unspecified SNOMED: 94742760 Qualifiers: Qualified Codes: R19.7 - Diarrhea, unspecified (4) Graves disease ICD Codes: E05.00 - Thyrotoxicosis with diffuse goiter without thyrotoxic crisis or storm SNOMED: 896976813 (5) CHF (congestive heart failure) ICD Codes: I50.9 - Heart failure, unspecified SNOMED: 31162943 Qualifiers: Qualified Codes: I50.83 - High output heart failure (6) Hyperthyroidism ICD Codes: E05.90 - Thyrotoxicosis, unspecified without thyrotoxic crisis or storm SNOMED: 40109892 Diagnosis [place] I: IV fluids NPO GI evaluation endo evaluation for hyperthyroidsm. check electrolytes abx as per ID symptomatic treatment Brittany Fowler MD Oct 17, 2018 14:15
--- NOTE | 2018-10-17 14:45 | Consultation ---
History of Present Illness General Reason for Hospitalization: Abdominal Pain Present Illness HPI 38 year old female who was recently discharged from outside facility for abdominal pain presented with acutely worsening pain beginning yesterday again. states was feeling better but last night had 10/10 cramping lower generalized abdominal pain. associated nausea and diarrhea. came to [facility] for evaluation. labs noted. CT with jejunal inflammation. surgery called to evaluate and assist with care and management. patient seen, chart reviewed, patient examined. states she feels better now and is hungry. +flatus and diarrhea Allergies: Coded Allergies: DIPHENHYDRAMINE (Verified Allergy, Unknown, 10/16/18) LATEX (Verified Allergy, Unknown, 10/16/18) Medication History Scheduled Amlodipine Besylate (Norvasc), 10 MG ORAL DAILY, (Reported) Carvedilol* (Carvedilol*), 25 MG ORAL EVERY 12 HOURS, (Reported) Cephalexin* (Cephalexin*), 500 MG ORAL EVERY 6 HOURS, (Reported) Furosemide* (Lasix*), 40 MG ORAL DAILY, (Reported) Lisinopril (Lisinopril*), 20 MG ORAL DAILY, (Reported) Methimazole (Methimazole), 10 MG PO BID, (Reported) Patient History History Provided By: Patient, Medical Record, PMD Healthcare decision maker Resuscitation status Full Code Advanced Directive on File No Past Medical/Surgical History Past Medical/Surgical History: (1) Colitis (2) Diarrhea (3) Graves disease (4) CHF (congestive heart failure) (5) Hyperthyroidism (6) Leukocytosis (7) Abdominal pain (8) Vomiting (9) Enteritis (10) Intractable abdominal pain Review of Systems Review of Symptoms General ROS: no weight loss or fever Psychological ROS: no depression or mood changes, no memory loss Ophthalmic ROS: no visual changes or eye irritation ENT ROS: no nasal congestion, hearing loss, dizziness Allergy and Immunology ROS: no allergic symptoms or urticaria Hematological and Lymphatic ROS: no swollen glands, unusual bleeding or bruising Endocrine ROS: no polyuria, polydipsia, weight changes, temperature intolerance Respiratory ROS: no cough, shortness of breath, or wheezing Cardiovascular ROS: no chest pain or dyspnea on exertion Gastrointestinal ROS: abdominal pain, no bright red blood in stool. Musculoskeletal ROS: no myalgias or arthralgias Neurological ROS: no TIA or stroke symptoms Dermatological ROS: no new or changing skin lesions, rashes or pruritis Physical Exam Physical Exam General appearance: alert, cooperative, no distress, appears stated age Head: Normocephalic, without obvious abnormality, atraumatic Eyes: conjunctivae/corneas clear. PERRL, EOM's intact. Fundi benign Throat: Lips, mucosa, and tongue normal. Teeth and gums normal Neck: supple, symmetrical, trachea midline, no adenopathy, thyroid: not enlarged, symmetric, no tenderness/mass/nodules, no carotid bruit and no JVD Lungs: clear to auscultation bilaterally Heart: regular rate and rhythm, S1, S2 normal, no murmur, click, rub or gallop Abdomen: soft, non-tender. Bowel sounds normal. No masses, no organomegaly Extremities: extremities normal, atraumatic, no cyanosis or edema Pulses: 2+ and symmetric Skin: Skin color, texture, turgor normal. No rashes or lesions Neurologic: Grossly normal Last 24 Hour Vital Signs Date Time Temp Pulse Resp B/P (MAP) Pulse Ox O2 Delivery O2 Flow Rate FiO2 10/17/18 11:25 90 138/78 10/17/18 11:24 138/78 10/17/18 11:24 90 138/78 10/17/18 04:00 98.7 18 143/73 (96) 10/17/18 00:08 Room Air 10/16/18 23:20 98.4 83 20 152/88 100 Room Air 10/16/18 21:00 98.4 83 20 152/88 100 Room Air 10/16/18 20:20 98.2 10/16/18 18:29 98.2 80 25 166/90 100 Room Air 10/16/18 18:24 98.2 10/16/18 17:45 81 20 Room Air 10/16/18 17:45 98.2 20 171/92 96 Room Air 10/16/18 17:31 98.2 81 20 171/92 96 Room Air Intake and Output 10/16/18 10/17/18 19:00 07:00 # Voids 1 Laboratory Tests Test 10/16/18 17:45 10/17/18 05:35 White Blood Count 14.0 K/UL (4.8-10.8) H 13.4 K/UL (4.8-10.8) H Red Blood Count 4.98 M/UL (4.20-5.40) 4.41 M/UL (4.20-5.40) Hemoglobin 13.4 G/DL (12.0-16.0) 12.3 G/DL (12.0-16.0) Hematocrit 41.4 % (37.0-47.0) 37.3 % (37.0-47.0) Mean Corpuscular Volume 83 FL (80-99) 85 FL (80-99) Mean Corpuscular Hemoglobin 26.9 PG (27.0-31.0) L 27.8 PG (27.0-31.0) Mean Corpuscular Hemoglobin Concent 32.3 G/DL (32.0-36.0) 32.9 G/DL (32.0-36.0) Red Cell Distribution Width 13.8 % (11.6-14.8) 14.0 % (11.6-14.8) Platelet Count 349 K/UL (150-450) 298 K/UL (150-450) Mean Platelet Volume 7.4 FL (6.5-10.1) 8.7 FL (6.5-10.1) Neutrophils (%) (Auto) % (45.0-75.0) 81.2 % (45.0-75.0) H Lymphocytes (%) (Auto) % (20.0-45.0) 10.4 % (20.0-45.0) L Monocytes (%) (Auto) % (1.0-10.0) 5.2 % (1.0-10.0) Eosinophils (%) (Auto) % (0.0-3.0) 0.1 % (0.0-3.0) Basophils (%) (Auto) % (0.0-2.0) 3.2 % (0.0-2.0) H Differential Total Cells Counted 100 Neutrophils % (Manual) 85 % (45-75) H Lymphocytes % (Manual) 12 % (20-45) L Monocytes % (Manual) 3 % (1-10) Eosinophils % (Manual) 0 % (0-3) Basophils % (Manual) 0 % (0-2) Band Neutrophils 0 % (0-8) Platelet Estimate Adequate Platelet Morphology Normal Red Blood Cell Morphology Normal Prothrombin Time 11.9 SEC (9.30-11.50) H Prothromb Time International Ratio 1.1 (0.9-1.1) Activated Partial Thromboplast Time 30 SEC (23-33) 27 SEC (23-33) Urine Color Pale yellow Urine Appearance Clear Urine pH 7 (4.5-8.0) Urine Specific [place] 1.005 (1.005-1.035) Urine Protein Negative (NEGATIVE) Urine Glucose (UA) Negative (NEGATIVE) Urine Ketones 3+ (NEGATIVE) H Urine Blood Negative (NEGATIVE) Urine Nitrite Negative (NEGATIVE) Urine Bilirubin Negative (NEGATIVE) Urine Urobilinogen Normal MG/DL (0.0-1.0) Urine Leukocyte Esterase Negative (NEGATIVE) Sodium Level 137 MMOL/L (136-145) 139 MMOL/L (136-145) Potassium Level 3.9 MMOL/L (3.5-5.1) 4.3 MMOL/L (3.5-5.1) Chloride Level 100 MMOL/L (98-107) 102 MMOL/L (98-107) Carbon Dioxide Level 26 MMOL/L (21-32) 24 MMOL/L (21-32) Anion Gap 11 mmol/L (5-15) 13 mmol/L (5-15) Blood Urea Nitrogen 8 mg/dL (7-18) 7 mg/dL (7-18) Creatinine 1.0 MG/DL (0.55-1.30) 0.8 MG/DL (0.55-1.30) Estimat Glomerular Filtration Rate > 60 mL/min (>60) > 60 mL/min (>60) Glucose Level 102 MG/DL (74-106) 68 MG/DL (74-106) L Calcium Level 10.0 MG/DL (8.5-10.1) 8.7 MG/DL (8.5-10.1) Total Bilirubin 1.0 MG/DL (0.2-1.0) 1.0 MG/DL (0.2-1.0) Aspartate Amino Transf (AST/SGOT) 30 U/L (15-37) 39 U/L (15-37) H Alanine Aminotransferase (ALT/SGPT) 22 U/L (12-78) 20 U/L (12-78) Alkaline Phosphatase 229 U/L (46-116) H 173 U/L (46-116) H Pro-B-Type Natriuretic Peptide 1155 pg/mL (0-125) H Total Protein 8.9 G/DL (6.4-8.2) H 7.4 G/DL (6.4-8.2) Albumin 3.2 G/DL (3.4-5.0) L 2.7 G/DL (3.4-5.0) L Globulin 5.7 g/dL 4.7 g/dL Albumin/Globulin Ratio 0.6 (1.0-2.7) L 0.6 (1.0-2.7) L Lipase 130 U/L (73-393) 102 U/L (73-393) Thyroid Stimulating Hormone (TSH) 0.021 uiU/mL (0.358-3.740) Human Chorionic Gonadotropin, Qual Negative (NEGATIVE) Amylase Level 18 U/L (25-115) L Height (Feet): 5 Height (Inches): 2.00 Weight (Pounds): 170 Medications Current Medications Medications (Trade) Dose Ordered Sig/Candelaria Route PRN Reason Start Time Stop Time Status Last Admin Dose Admin Acetaminophen (Tylenol) 650 mg Q4H PRN ORAL fever 10/16/18 22:00 11/15/18 21:59 Al Hydroxide/Mg Hydroxide (Mylanta II) 30 ml Q6H PRN ORAL dyspepsia 10/16/18 22:00 11/15/18 21:59 Amlodipine Besylate (Norvasc) 10 mg DAILY ORAL 10/17/18 09:00 11/16/18 08:59 10/17/18 11:25 Amoxicillin/ Clavulanate Potassium (Augmentin) 500 mg Q12HR ORAL 10/17/18 11:00 10/24/18 10:59 10/17/18 13:55 Carvedilol (Coreg) 25 mg EVERY 12 HOURS ORAL 10/17/18 09:00 11/16/18 08:59 10/17/18 11:24 Dextrose (Dextrose 50%) 25 ml Q30M PRN IV Hypoglycemia 10/16/18 22:00 11/15/18 21:59 Dextrose (Dextrose 50%) 50 ml Q30M PRN IV Hypoglycemia 10/16/18 22:00 11/15/18 21:59 Dextrose/Sodium Chloride 1,000 ml @ 75 mls/hr [id number] IV 10/16/18 21:48 11/15/18 21:47 10/16/18 22:30 Doxycycline Monohydrate (Vibramycin) 100 mg EVERY 12 HOURS ORAL 10/17/18 10:00 10/18/18 09:59 10/17/18 11:25 Heparin Sodium (Porcine) (Heparin 5000 units/ml) 5,000 units EVERY 12 HOURS SUBQ 10/17/18 09:00 11/16/18 08:59 Lisinopril (Prinivil) 20 mg DAILY ORAL 10/17/18 09:00 11/16/18 08:59 10/17/18 11:24 Morphine Sulfate (Morphine Sulfate) 2 mg Q4H PRN IVP severe Pain (Pain Scale 7-10) 10/16/18 22:00 10/23/18 21:59 Ondansetron HCl (Zofran) 4 mg Q6H PRN IVP Nausea & Vomiting 10/16/18 22:00 11/15/18 21:59 Pantoprazole (Protonix) 40 mg DAILY IVP 10/17/18 09:00 11/16/18 08:59 Temazepam (Restoril) 15 mg HSPRN PRN ORAL Insomnia 10/16/18 22:00 10/23/18 21:59 Assessment/Plan Problem List: (1) Colitis ICD Codes: K52.9 - Noninfective gastroenteritis and colitis, unspecified SNOMED: 01869878 (2) Diarrhea ICD Codes: R19.7 - Diarrhea, unspecified SNOMED: 70709638 Qualifiers: Qualified Codes: R19.7 - Diarrhea, unspecified (3) Graves disease ICD Codes: E05.00 - Thyrotoxicosis with diffuse goiter without thyrotoxic crisis or storm SNOMED: 015729920 (4) CHF (congestive heart failure) ICD Codes: I50.9 - Heart failure, unspecified SNOMED: 20204335 Qualifiers: Qualified Codes: I50.83 - High output heart failure (5) Hyperthyroidism ICD Codes: E05.90 - Thyrotoxicosis, unspecified without thyrotoxic crisis or storm SNOMED: 97085264 (6) Leukocytosis ICD Codes: D72.829 - Elevated white blood cell count, unspecified SNOMED: 643962075, 053512750 Qualifiers: Qualified Codes: D72.828 - Other elevated white blood cell count (7) Abdominal pain Assessment & Plan: CT noted with Long segment severe inflammatory changes involving loops of the jejunum with marked mucosal thickening with associated narrowing of the lumen. No evidence of associated bowel obstruction at this time. Small amount of ascites is noted without well-defined/drainable fluid collection to suggest abscess. No pneumatosis intestinalis or free intraperitoneal air. Etiology is favored to be infectious orinflammatory. Correlation recommended. Exam stable without any pain or discomfort now leukocytosis afebrile, HD stable -okay for trial clear liquids -AM labs -serial abdominal exams no acute surgical intervention planned will follow with recs thank you ICD Codes: R10.9 - Unspecified abdominal pain SNOMED: 01718976 Qualifiers: Qualified Codes: R10.9 - Unspecified abdominal pain (8) Vomiting ICD Codes: R11.10 - Vomiting, unspecified SNOMED: 056346066, 191262627 Qualifiers: Qualified Codes: R11.2 - Nausea with vomiting, unspecified (9) Enteritis ICD Codes: K52.9 - Noninfective gastroenteritis and colitis, unspecified SNOMED: 76763087 (10) Intractable abdominal pain ICD Codes: R10.9 - Unspecified abdominal pain SNOMED: 00843178, [id number] John Camargo Oct 17, 2018 14:45
[2018-10-17 16:00] VITALS: BP 136/74
--- NOTE | 2018-10-17 16:13 | Diagnostic Imaging Report ---
Indication: Abdominal pain Technique: Multiplanar grayscale and color Doppler imaging of the abdomen Comparison: Concurrent CT of the abdomen and pelvis Findings: Right lobe of the liver is within the upper limits of normal size measuring 18 cm in length. No focal hepatic mass lesion is appreciated sonographically. Main portal vein appears patent with normal direction of flow. Hepatic contour appears smooth. Gallbladder is unremarkable in appearance. No gallstones or gallbladder sludge identified. No gallbladder wall thickening or pericholecystic fluid. Sonographic Ku sign reported as negative. No intrahepatic or extrahepatic biliary ductal dilatation. Common bile duct measures 4 mm in diameter. Kidneys are symmetric in size. They demonstrate normal echogenicity. There is no hydronephrosis or sonographically appreciable renal stone. Subcentimeter simple appearing cysts are noted in the right kidney. Spleen is normal in size. Trace fluid is noted in the right upper quadrant. Imaged portions of the proximal aorta are normal in caliber. The mid and distal aorta are not visualized. Pancreas is obscured by overlying bowel gas. IMPRESSION: Bowel gas limits evaluation, obscuring the pancreas and the mid and distal aorta. These structures are not evaluated. Trace ascites is identified. No gallstones or sonographic evidence to suggest acute cholecystitis. Incidental findings as above.
--- NOTE | 2018-10-17 18:44 | History & Physical ---
History and Physical History & Physicial Dictated for Int Med-Dr Neil no. [id number] Filipe Youngblood MD Oct 17, 2018 18:44
[2018-10-17 20:00] VITALS: BP 140/75
--- NOTE | 2018-10-17 20:13 | NUR ---
NURSE NOTES: Ultrasound done earlier in shift ,. Historic Site Administrator informed Dr Fowler in regards to pt desire to eat. Orders placed by MD. Provided with clear liquid diet after ultrasound tolerated well . Able to verbalize known needs. Current plan care followed. Call light is in reach. No further complaints of abdominal pain
--- NOTE | 2018-10-17 20:14 | NUR ---
NURSE NOTES: Received patient in no apparent distress. A&OX4. IV site patent and intact. Bed in lowest position. Call light within reach. Will continue to monitor.
[2018-10-18] VITALS: BP 130/90
--- NOTE | 2018-10-18 | History and Physical Report ---
DATE OF ADMISSION: 10/16/2018 CHIEF COMPLAINT: The patient is a 38-year-old female, who presents with a chief complaint of abdominal pain, nausea, vomiting, and diarrhea. HISTORY OF PRESENT ILLNESS: The patient was admitted to [facility] from 10/10/2018 to 10/15/2018. The patient was admitted for fever and chills. The patient also had abdominal pain. The patient was discharged on 10/15/2018. The patient presented to [place] emergency room. The patient was complaining of bilateral upper quadrant abdominal pain. The patient also had nausea and vomiting. The patient also had watery stools. The patient was unable to tolerate liquids or solids. The patient was admitted for abdominal pain, nausea, vomiting, and diarrhea. REVIEW OF SYSTEMS: CONSTITUTIONAL: The patient denies weight loss or weight gain. The patient denies fevers or chills. HEENT: The patient denies ear or throat pain. The patient denies headache. CARDIOVASCULAR: The patient denies palpitations or chest pain. CHEST: The patient denies wheeze or shortness of breath. ABDOMEN: The patient complains of nausea, vomiting, and diarrhea as above. The patient complains of bilateral upper quadrant abdominal pain. The patient denies constipation. GENITOURINARY: The patient denies dysuria or increased frequency of urination. NEUROMUSCULAR: The patient denies seizures or generalized weakness. PAST MEDICAL HISTORY: Significant for, 1. Hypertension. 2. Hyperthyroidism. 3. Congestive heart failure. PAST SURGICAL HISTORY: The patient denies. CURRENT MEDICATIONS: 1. Amlodipine 10 mg p.o. daily. 2. Carvedilol 25 mg p.o. twice daily. 3. Keflex 500 mg p.o. q.6 hours. 4. Lasix 40 mg p.o. daily. 5. Lisinopril 20 mg p.o. daily. 6. Methimazole 10 mg p.o. twice daily. ALLERGIES: Benadryl. SOCIAL HISTORY: The patient is single. The patient works for [employer]. The patient denies tobacco or alcohol use. PHYSICAL EXAMINATION: VITAL SIGNS: Temperature 98.2, respirations 20, pulse 81, and blood pressure 171/92. GENERAL: The patient is a well-developed and well-nourished female, in no apparent distress. HEENT: Eyes, pupils are equal and responsive to light and accommodation. Extraocular movements are intact. NECK: Supple without lymphadenopathy. CHEST: Lungs are clear to auscultation bilaterally without wheezes or rales. CARDIOVASCULAR: Regular rhythm and rate. S1 and S2 are normal without murmurs, rubs, or gallops. ABDOMEN: Soft and diffusely tender with decreased bowel sounds. No evidence of hepatosplenomegaly. Currently, no rebound or guarding noted. EXTREMITIES: Negative for clubbing, cyanosis, or edema. RECTAL/GENITAL: Refused. NEUROLOGIC: Cranial nerves II through XII are grossly intact without focal deficits. Motor strength is 5/5 bilaterally. Deep tendon reflexes are 2+ plantar. A CT scan of the abdomen showed severe inflammatory changes involving loops of the jejunum with marked mucosal thickening consistent with enteritis. LABORATORY STUDIES: WBC 14.2, hemoglobin 13.4, hematocrit 41.4, and platelets 349,000. Sodium 137, potassium 3.9, chloride 100, CO2 26, BUN 8, creatinine 1.0, and glucose 102. Alkaline phosphatase elevated at 229. BNP elevated at 1155. TSH was decreased at 0.021. ASSESSMENT: This is a 38-year-old female. 1. Abdominal pain. 2. Nausea and vomiting. 3. Diarrhea. 4. Enteritis. 5. Hypertension. 6. Hypothyroidism. 7. Congestive heart failure. TREATMENT: 1. Abdominal pain/nausea/vomiting/diarrhea/enteritis. A Gastroenterology consultation has been obtained with Dr. Nathaniel Perera. Stool cultures are pending. We will follow recommendations of gastroenterology. 2. Hypertension. Continue amlodipine and Coreg as above. 3. Hyperthyroidism. Continue methenamine as above. 4. Congestive heart failure. Cardiology consultation has been obtained with Dr. Ralph Abdalla. Filipe Youngblood M.D. DR: NAN JOB#: [id number] CC:
[2018-10-18] MEDS: D5 1/2NS 1,000 ML IV SCH (00:28)
[2018-10-18 04:00] VITALS: BP 127/80
[2018-10-18 06:24] LABS: BASOPHILS % (AUTO) 0.9 % (0.0-2.0); EOSINOPHILS % (AUTO) 1.1 % (0.0-3.0); HEMATOCRIT 38.5 % (37.0-47.0); HEMOGLOBIN 12.6 G/DL (12.0-16.0); LYMPHOCYTES % (AUTO) 20.7 % (20.0-45.0); MEAN CORPUSCULAR VOLUME 85 FL (80-99); MONOCYTES % (AUTO) 4.5 % (1.0-10.0); NEUTROPHILS % (AUTO) 72.8 % (45.0-75.0); PLATELET COUNT 351 K/UL (150-450); RED BLOOD COUNT 4.54 M/UL (4.20-5.40); RED CELL DISTRIBUTION WIDTH 14.2 % (11.6-14.8); WHITE BLOOD COUNT 11.1 K/UL (4.8-10.8)
[2018-10-18 06:33] LABS: INR 1.1 (0.9-1.1)
--- NOTE | 2018-10-18 07:30 | NUR ---
HAND-OFF: Report given to Smita BUSTOS.
--- NOTE | 2018-10-18 07:48 | Infectious Diseases Prog Note ---
Assessment/Plan Assessment/Plan Abx: Flagyl x1 10/16 Assessment: Abd pain/Vomiting- improving- likely in the setting of dehydration- r/o intrabdominal pathology -CT abd/p - * Long segment severe inflammatory changes involving loops of the jejunum with marked mucosal thickening with associated narrowing of the lumen. No evidence of associated bowel obstruction at this time. Small amount of ascites is noted without well-defined/drainable fluid collection to suggest abscess. No pneumatosis intestinalis or free intraperitoneal air. Urology is favored to be infectious or inflammatory. Correlation recommended. * Diverticulosis without evidence of acute diverticulitis. * Normal appendix. * Apparent bladder wall thickening likely related to underdistention. Diarrhea x1- seems abx related but r/o Cdiff -Cdiff - pend Afebrile Leukocytosis; improving- ?reactive -u/a neg -CXR: p Recent buttock pilonidal cyst/abscess; improving HTN hyperthyroidism on methimazole Plan: -Will finish her abx course for pilonidal cyst/abscess w 2 day of abx: Doxycycline and Augmentin -f/u cx -Monitor CBC/CMP, temperatures -cdiff, stool cx, influenza sc -f/u CT abd/p Thank you for this consultation. Will continue to follow along with you. Discussed with RN. Subjective Allergies: Coded Allergies: DIPHENHYDRAMINE (Verified Allergy, Unknown, 10/16/18) LATEX (Verified Allergy, Unknown, 10/16/18) Subjective Afebrile Leukocytosis improving Pain controlled Objective Vital Signs Last 24 Hour Vital Signs Date Time Temp Pulse Resp B/P (MAP) Pulse Ox O2 Delivery O2 Flow Rate FiO2 10/18/18 04:00 98.3 77 18 127/80 (96) 94 10/18/18 00:00 98.3 79 18 130/90 (103) 95 10/17/18 21:00 Room Air 10/17/18 20:35 104 140/75 10/17/18 20:00 98.2 104 18 140/75 (96) 98 10/17/18 16:00 98.1 72 18 136/74 (94) 98 70 10/17/18 12:00 98.2 78 18 138/77 (97) 98 10/17/18 11:25 90 138/78 10/17/18 11:24 138/78 10/17/18 11:24 90 138/78 10/17/18 09:00 Room Air 10/17/18 08:00 98.5 75 19 139/77 (97) 97 Height (Feet): 5 Height (Inches): 2.00 Weight (Pounds): 170 Objective General: NAD HEENT: NCAT, MMM, EOMI Respiratory: CTAB, No W Cardiovascular: regular rate, rhythm, S1, S2 Gastrointestinal: Soft, ND, NT, Neurologic: alert, oriented x3 Microbiology Date/Time Source Procedure Growth Status 10/17/18 16:00 Nasopharynx - Final Complete 10/17/18 16:00 Nasopharynx - Final Complete Laboratory Tests Test 10/18/18 05:30 White Blood Count 11.1 K/UL (4.8-10.8) H Red Blood Count 4.54 M/UL (4.20-5.40) Hemoglobin 12.6 G/DL (12.0-16.0) Hematocrit 38.5 % (37.0-47.0) Mean Corpuscular Volume 85 FL (80-99) Mean Corpuscular Hemoglobin 27.7 PG (27.0-31.0) Mean Corpuscular Hemoglobin Concent 32.7 G/DL (32.0-36.0) Red Cell Distribution Width 14.2 % (11.6-14.8) Platelet Count 351 K/UL (150-450) Mean Platelet Volume 7.9 FL (6.5-10.1) Neutrophils (%) (Auto) 72.8 % (45.0-75.0) Lymphocytes (%) (Auto) 20.7 % (20.0-45.0) Monocytes (%) (Auto) 4.5 % (1.0-10.0) Eosinophils (%) (Auto) 1.1 % (0.0-3.0) Basophils (%) (Auto) 0.9 % (0.0-2.0) Erythrocyte Sedimentation Rate Pending Prothrombin Time 11.2 SEC (9.30-11.50) Prothromb Time International Ratio 1.1 (0.9-1.1) Activated Partial Thromboplast Time 25 SEC (23-33) Sodium Level Pending Potassium Level Pending Chloride Level Pending Carbon Dioxide Level Pending Blood Urea Nitrogen Pending Creatinine Pending Estimat Glomerular Filtration Rate Pending Glucose Level Pending Calcium Level Pending Total Bilirubin Pending Aspartate Amino Transf (AST/SGOT) Pending Alanine Aminotransferase (ALT/SGPT) Pending Alkaline Phosphatase Pending C-Reactive Protein, Quantitative Pending Total Protein Pending Albumin Pending Globulin Pending Lipase Pending Current Medications Medications (Trade) Dose Ordered Sig/Candelaria Route PRN Reason Start Time Stop Time Status Last Admin Dose Admin Acetaminophen (Tylenol) 650 mg Q4H PRN ORAL fever 10/16/18 22:00 11/15/18 21:59 Al Hydroxide/Mg Hydroxide (Mylanta II) 30 ml Q6H PRN ORAL dyspepsia 10/16/18 22:00 11/15/18 21:59 Amlodipine Besylate (Norvasc) 10 mg DAILY ORAL 10/17/18 09:00 11/16/18 08:59 10/17/18 11:25 Amoxicillin/ Clavulanate Potassium (Augmentin) 500 mg Q12HR ORAL 10/17/18 11:00 10/24/18 10:59 10/17/18 20:34 Carvedilol (Coreg) 25 mg EVERY 12 HOURS ORAL 10/17/18 09:00 11/16/18 08:59 10/17/18 20:35 Dextrose (Dextrose 50%) 25 ml Q30M PRN IV Hypoglycemia 10/16/18 22:00 11/15/18 21:59 Dextrose (Dextrose 50%) 50 ml Q30M PRN IV Hypoglycemia 10/16/18 22:00 11/15/18 21:59 Dextrose/Sodium Chloride 1,000 ml @ 75 mls/hr [id number] IV 10/16/18 21:48 11/15/18 21:47 10/16/18 22:30 Doxycycline Monohydrate (Vibramycin) 100 mg EVERY 12 HOURS ORAL 10/17/18 10:00 10/18/18 09:59 10/17/18 20:34 Heparin Sodium (Porcine) (Heparin 5000 units/ml) 5,000 units EVERY 12 HOURS SUBQ 10/17/18 09:00 11/16/18 08:59 Lisinopril (Prinivil) 20 mg DAILY ORAL 10/17/18 09:00 11/16/18 08:59 10/17/18 11:24 Morphine Sulfate (Morphine Sulfate) 2 mg Q4H PRN IVP severe Pain (Pain Scale 7-10) 10/16/18 22:00 10/23/18 21:59 10/17/18 20:42 Ondansetron HCl (Zofran) 4 mg Q6H PRN IVP Nausea & Vomiting 10/16/18 22:00 11/15/18 21:59 Pantoprazole (Protonix) 40 mg DAILY IVP 10/17/18 09:00 11/16/18 08:59 Temazepam (Restoril) 15 mg HSPRN PRN ORAL Insomnia 10/16/18 22:00 10/23/18 21:59 10/18/18 01:43 Boubacar Lehman MD Oct 18, 2018 07:47
[2018-10-18 07:58] LABS: ALANINE AMINOTRANSFERASE 18 U/L (12-78); ALBUMIN 2.8 G/DL (3.4-5.0); ALBUMIN/GLOBULIN RATIO 0.6 (1.0-2.7); ALKALINE PHOSPHATASE 158 U/L (46-116); ANION GAP 10 mmol/L (5-15); ASPARTATE AMINO TRANSFERASE 22 U/L (15-37); BILIRUBIN,TOTAL 0.9 MG/DL (0.2-1.0); BLOOD UREA NITROGEN 5 mg/dL (7-18); CALCIUM 8.9 MG/DL (8.5-10.1); CARBON DIOXIDE 27 MMOL/L (21-32); CHLORIDE 103 MMOL/L (98-107); CREATININE 0.8 MG/DL (0.55-1.30); POTASSIUM 3.6 MMOL/L (3.5-5.1); SODIUM 139 MMOL/L (136-145)
[2018-10-18 08:00] VITALS: BP 152/76
--- NOTE | 2018-10-18 08:04 | NUR ---
NURSE NOTES: received report from AKASH Martel. patient in bed. alert, verbally responsive. no respiratory distress noted. OBS collected. IV RAC intact. bed in the lowest position . call light within reach. will continue to monitor.
[2018-10-18] MEDS: Pantoprazole Inj IVP SCH (08:37)
[2018-10-18] MEDS: Carvedilol 25mg Tab ORAL SCH ×2 (08:38→22:27)
[2018-10-18] MEDS: Lisinopril 20mg tab ORAL SCH (08:38)
[2018-10-18] MEDS: Heparin 5000 units/ml inj SUBQ SCH ×2 (08:38→21:00)
[2018-10-18] MEDS: Doxycycline Monohydrate 100mg ORAL SCH ×2 (08:38→22:27)
--- NOTE | 2018-10-18 10:44 | General Progress Note ---
Assessment/Plan Problem List: (1) Graves disease ICD Codes: E05.00 - Thyrotoxicosis with diffuse goiter without thyrotoxic crisis or storm SNOMED: [id number] Assessment: not a good candidate for THACKER due to Graves' eye disease will keep and continue on Tapazole Subjective Allergies: Coded Allergies: DIPHENHYDRAMINE (Verified Allergy, Unknown, 10/16/18) LATEX (Verified Allergy, Unknown, 10/16/18) All Systems: reviewed and negative except above Subjective events noted she is resting Objective Last 24 Hour Vital Signs Date Time Temp Pulse Resp B/P (MAP) Pulse Ox O2 Delivery O2 Flow Rate FiO2 10/18/18 08:38 152/76 10/18/18 08:38 75 152/76 10/18/18 08:38 75 152/76 10/18/18 08:00 97.2 75 19 152/76 (101) 97 10/18/18 04:00 98.3 77 18 127/80 (96) 94 10/18/18 00:00 98.3 79 18 130/90 (103) 95 10/17/18 21:00 Room Air 10/17/18 20:35 104 140/75 10/17/18 20:00 98.2 104 18 140/75 (96) 98 10/17/18 16:00 98.1 72 18 136/74 (94) 98 70 10/17/18 12:00 98.2 78 18 138/77 (97) 98 10/17/18 11:25 90 138/78 10/17/18 11:24 138/78 10/17/18 11:24 90 138/78 Intake and Output 10/17/18 10/18/18 19:00 07:00 # Voids 5 2 Laboratory Tests 10/18/18 04:00: Sodium Level 139, Potassium Level 3.6, Chloride Level 103, Carbon Dioxide Level 27, Anion Gap 10, Blood Urea Nitrogen 5L, Creatinine 0.8, Estimat Glomerular Filtration Rate > 60, Glucose Level 82, Calcium Level 8.9, Total Bilirubin 0.9, Aspartate Amino Transf (AST/SGOT) 22, Alanine Aminotransferase (ALT/SGPT) 18, Alkaline Phosphatase 158H, C-Reactive Protein, Quantitative 0.6, Total Protein 7.3, Albumin 2.8L, Globulin 4.5, Albumin/Globulin Ratio 0.6L, Lipase 82 10/18/18 05:30: White Blood Count 11.1H, Red Blood Count 4.54, Hemoglobin 12.6, Hematocrit 38.5 , Mean Corpuscular Volume 85, Mean Corpuscular Hemoglobin 27.7, Mean Corpuscular Hemoglobin Concent 32.7, Red Cell Distribution Width 14.2, Platelet Count 351, Mean Platelet Volume 7.9, Neutrophils (%) (Auto) 72.8, Lymphocytes (% ) (Auto) 20.7, Monocytes (%) (Auto) 4.5, Eosinophils (%) (Auto) 1.1, Basophils ( %) (Auto) 0.9, Erythrocyte Sedimentation Rate 27H, Prothrombin Time 11.2, Prothromb Time International Ratio 1.1, Activated Partial Thromboplast Time 25 Height (Feet): 5 Height (Inches): 2.00 Weight (Pounds): 170 General Appearance: no apparent distress Neck: normal alignment Cardiovascular: normal rate Respiratory/Chest: lungs clear Abdomen: normal bowel sounds Objective Current Medications Medications (Trade) Dose Ordered Sig/Candelaria Route PRN Reason Start Time Stop Time Status Last Admin Dose Admin Acetaminophen (Tylenol) 650 mg Q4H PRN ORAL fever 10/16/18 22:00 11/15/18 21:59 Al Hydroxide/Mg Hydroxide (Mylanta II) 30 ml Q6H PRN ORAL dyspepsia 10/16/18 22:00 11/15/18 21:59 Amlodipine Besylate (Norvasc) 10 mg DAILY ORAL 10/17/18 09:00 11/16/18 08:59 10/18/18 08:38 Amoxicillin/ Clavulanate Potassium (Augmentin) 500 mg Q12HR ORAL 10/17/18 11:00 10/24/18 10:59 10/18/18 08:37 Carvedilol (Coreg) 25 mg EVERY 12 HOURS ORAL 10/17/18 09:00 11/16/18 08:59 10/18/18 08:38 Dextrose (Dextrose 50%) 25 ml Q30M PRN IV Hypoglycemia 10/16/18 22:00 11/15/18 21:59 Dextrose (Dextrose 50%) 50 ml Q30M PRN IV Hypoglycemia 10/16/18 22:00 11/15/18 21:59 Dextrose/Sodium Chloride 1,000 ml @ 75 mls/hr [id number] IV 10/16/18 21:48 11/15/18 21:47 10/16/18 22:30 Heparin Sodium (Porcine) (Heparin 5000 units/ml) 5,000 units EVERY 12 HOURS SUBQ 10/17/18 09:00 11/16/18 08:59 Lisinopril (Prinivil) 20 mg DAILY ORAL 10/17/18 09:00 11/16/18 08:59 10/18/18 08:38 Morphine Sulfate (Morphine Sulfate) 2 mg Q4H PRN IVP severe Pain (Pain Scale 7-10) 10/16/18 22:00 10/23/18 21:59 10/17/18 20:42 Ondansetron HCl (Zofran) 4 mg Q6H PRN IVP Nausea & Vomiting 10/16/18 22:00 11/15/18 21:59 Pantoprazole (Protonix) 40 mg DAILY IVP 10/17/18 09:00 11/16/18 08:59 10/18/18 08:37 Temazepam (Restoril) 15 mg HSPRN PRN ORAL Insomnia 10/16/18 22:00 10/23/18 21:59 10/18/18 01:43 Ever Pedersen MD Oct 18, 2018 10:44
[2018-10-18 12:00] VITALS: BP 128/73
--- NOTE | 2018-10-18 14:55 | Internal Med Progress Note ---
Subjective Date of Service: Oct 18, 2018 Physician Name Filipe Youngblood Attending Physician Justin Neil MD Current Medications Medications (Trade) Dose Ordered Sig/Candelaria Route PRN Reason Start Time Stop Time Status Last Admin Dose Admin Acetaminophen (Tylenol) 650 mg Q4H PRN ORAL fever 10/16/18 22:00 11/15/18 21:59 Al Hydroxide/Mg Hydroxide (Mylanta II) 30 ml Q6H PRN ORAL dyspepsia 10/16/18 22:00 11/15/18 21:59 Amlodipine Besylate (Norvasc) 10 mg DAILY ORAL 10/17/18 09:00 11/16/18 08:59 10/18/18 08:38 Amoxicillin/ Clavulanate Potassium (Augmentin) 500 mg Q12HR ORAL 10/17/18 11:00 10/24/18 10:59 10/18/18 08:37 Carvedilol (Coreg) 25 mg EVERY 12 HOURS ORAL 10/17/18 09:00 11/16/18 08:59 10/18/18 08:38 Dextrose (Dextrose 50%) 25 ml Q30M PRN IV Hypoglycemia 10/16/18 22:00 11/15/18 21:59 Dextrose (Dextrose 50%) 50 ml Q30M PRN IV Hypoglycemia 10/16/18 22:00 11/15/18 21:59 Doxycycline Monohydrate (Vibramycin) 100 mg EVERY 12 HOURS ORAL 10/18/18 21:00 10/20/18 23:59 Furosemide (Lasix) 40 mg DAILY ORAL 10/19/18 09:00 11/18/18 08:59 Heparin Sodium (Porcine) (Heparin 5000 units/ml) 5,000 units EVERY 12 HOURS SUBQ 10/17/18 09:00 11/16/18 08:59 Lisinopril (Prinivil) 20 mg DAILY ORAL 10/17/18 09:00 11/16/18 08:59 10/18/18 08:38 Methimazole (Tapazole) 10 mg BID ORAL 10/18/18 18:00 11/17/18 17:59 Morphine Sulfate (Morphine Sulfate) 2 mg Q4H PRN IVP severe Pain (Pain Scale 7-10) 10/16/18 22:00 10/23/18 21:59 10/17/18 20:42 Ondansetron HCl (Zofran) 4 mg Q6H PRN IVP Nausea & Vomiting 10/16/18 22:00 11/15/18 21:59 Pantoprazole (Protonix) 40 mg DAILY IVP 10/17/18 09:00 11/16/18 08:59 10/18/18 08:37 Temazepam (Restoril) 15 mg HSPRN PRN ORAL Insomnia 10/16/18 22:00 10/23/18 21:59 10/18/18 01:43 Allergies: Coded Allergies: DIPHENHYDRAMINE (Verified Allergy, Unknown, 10/16/18) LATEX (Verified Allergy, Unknown, 10/16/18) ROS Limited/Unobtainable: No Constitutional: Reports: no symptoms HEENT: Reports: no symptoms Cardiovascular: Reports: no symptoms Respiratory: Reports: no symptoms Gastrointestinal/Abdominal: Reports: no symptoms Genitourinary: Reports: no symptoms Neurologic/Psychiatric: Reports: no symptoms Objective Last Vital Signs Date Time Temp Pulse Resp B/P (MAP) Pulse Ox O2 Delivery O2 Flow Rate FiO2 10/18/18 12:00 96.6 64 18 128/73 (91) 99 10/18/18 09:00 Room Air Laboratory Tests Test 10/18/18 04:00 10/18/18 05:30 Sodium Level 139 MMOL/L (136-145) Potassium Level 3.6 MMOL/L (3.5-5.1) Chloride Level 103 MMOL/L (98-107) Carbon Dioxide Level 27 MMOL/L (21-32) Anion Gap 10 mmol/L (5-15) Blood Urea Nitrogen 5 mg/dL (7-18) L Creatinine 0.8 MG/DL (0.55-1.30) Estimat Glomerular Filtration Rate > 60 mL/min (>60) Glucose Level 82 MG/DL (74-106) Calcium Level 8.9 MG/DL (8.5-10.1) Total Bilirubin 0.9 MG/DL (0.2-1.0) Aspartate Amino Transf (AST/SGOT) 22 U/L (15-37) Alanine Aminotransferase (ALT/SGPT) 18 U/L (12-78) Alkaline Phosphatase 158 U/L (46-116) H C-Reactive Protein, Quantitative 0.6 mg/dL (0.00-0.90) Total Protein 7.3 G/DL (6.4-8.2) Albumin 2.8 G/DL (3.4-5.0) L Globulin 4.5 g/dL Albumin/Globulin Ratio 0.6 (1.0-2.7) L Lipase 82 U/L (73-393) White Blood Count 11.1 K/UL (4.8-10.8) H Red Blood Count 4.54 M/UL (4.20-5.40) Hemoglobin 12.6 G/DL (12.0-16.0) Hematocrit 38.5 % (37.0-47.0) Mean Corpuscular Volume 85 FL (80-99) Mean Corpuscular Hemoglobin 27.7 PG (27.0-31.0) Mean Corpuscular Hemoglobin Concent 32.7 G/DL (32.0-36.0) Red Cell Distribution Width 14.2 % (11.6-14.8) Platelet Count 351 K/UL (150-450) Mean Platelet Volume 7.9 FL (6.5-10.1) Neutrophils (%) (Auto) 72.8 % (45.0-75.0) Lymphocytes (%) (Auto) 20.7 % (20.0-45.0) Monocytes (%) (Auto) 4.5 % (1.0-10.0) Eosinophils (%) (Auto) 1.1 % (0.0-3.0) Basophils (%) (Auto) 0.9 % (0.0-2.0) Erythrocyte Sedimentation Rate 27 MM/HR (0-20) H Prothrombin Time 11.2 SEC (9.30-11.50) Prothromb Time International Ratio 1.1 (0.9-1.1) Activated Partial Thromboplast Time 25 SEC (23-33) Microbiology Date/Time Source Procedure Growth Status 10/17/18 16:00 Nasopharynx - Final Complete 10/17/18 16:00 Nasopharynx - Final Complete Intake and Output 10/17/18 10/18/18 19:00 07:00 # Voids 5 2 Objective PHYSICAL EXAMINATION: GENERAL: The patient is a well-developed and well-nourished female, in no apparent distress. HEENT: Eyes, pupils are equal and responsive to light and accommodation. Extraocular movements are intact. NECK: Supple without lymphadenopathy. CHEST: Lungs are clear to auscultation bilaterally without wheezes or rales. CARDIOVASCULAR: Regular rhythm and rate. S1 and S2 are normal without murmurs, rubs, or gallops. ABDOMEN: Soft and diffusely tender with decreased bowel sounds. No evidence of hepatosplenomegaly. Currently, no rebound or guarding noted. EXTREMITIES: Negative for clubbing, cyanosis, or edema. RECTAL/GENITAL: Refused. NEUROLOGIC: Cranial nerves II through XII are grossly intact without focal deficits. Motor strength is 5/5 bilaterally. Deep tendon reflexes are 2+ plantar. A CT scan of the abdomen showed severe inflammatory changes involving loops of the jejunum with marked mucosal thickening consistent with enteritis. Assessment/Plan Assessment/Plan ASSESSMENT: This is a 38-year-old female. 1. Abdominal pain. 2. Nausea and vomiting. 3. Diarrhea. 4. Enteritis. 5. Hypertension. 6. Hypothyroidism. 7. Congestive heart failure. TREATMENT: 1. Abdominal pain/nausea/vomiting/diarrhea/enteritis. A Gastroenterology consultation has been obtained with Dr. Nathaniel Perera. Stool cultures are pending. We will follow recommendations of gastroenterology. 2. Hypertension. Continue amlodipine and Coreg as above. 3. Hyperthyroidism. Continue methenamine as above. 4. Congestive heart failure. Cardiology consultation has been obtained with Dr. Ralph Abdalla. 5. antibiotics=amoxicillin and doxycycline per Filipe Hay MD Oct 18, 2018 14:55
--- NOTE | 2018-10-18 15:29 | Cardiology Report ---
APPROVED REPORT EXAM: Two-dimensional and M-mode echocardiogram with Doppler and color Doppler. INDICATION Congestive Heart Failure M-Mode DIMENSIONS IVSd1.3 (0.7-1.1cm)Left Atrium (MM)4.3 (1.6-4.0cm) LVDd4.7 (3.5-5.6cm)Aortic Root2.8 (2.0-3.7cm) PWd1.2 (0.7-1.1cm)Aortic Cusp Exc.2.0 (1.5-2.0cm) LVDs2.2 (2.5-4.0cm) PWs2.1 cm Technically difficult study due to poor acoustic windows. Study quality precludes accurate assessment of regional wall motion. Normal left ventricular chamber size, systolic function and wall motion. Left ventricular ejection fraction estimated to be 65 %. Mild left ventricular hypertrophy. No evidence of pericardial effusion. Mild bi-atrial enlargement. Right ventricular chamber sizes is within normal limits. Normal appearing aortic, mitral, and tricuspid valves. Mild mitral annulus and aortic root calcification. Pulmonic valve not well visualized. IVC is normal in size with physiological collapse. A color flow and spectral Doppler study was performed and revealed: No aortic insufficiency. Trace mitral regurgitation. Normal left ventricular diastolic function. Trace tricuspid regurgitation. Tricuspid systolic velocities suggests peak right ventricular systolic pressure of 14 mmHg. No pulmonic regurgitation present.
[2018-10-18 16:00] VITALS: BP 117/69
--- NOTE | 2018-10-18 17:23 | Surgery Progress Note ---
Surgery Progress Note Subjective Additional Comments afebrile, HD stable, improving. tolerating diet. using bathroom Objective Last 24 Hour Vital Signs Date Time Temp Pulse Resp B/P (MAP) Pulse Ox O2 Delivery O2 Flow Rate FiO2 10/18/18 16:00 98.4 61 19 117/69 (85) 96 10/18/18 12:00 96.6 64 18 128/73 (91) 99 10/18/18 09:00 Room Air 10/18/18 08:38 152/76 10/18/18 08:38 75 152/76 10/18/18 08:38 75 152/76 10/18/18 08:00 97.2 75 19 152/76 (101) 97 10/18/18 04:00 98.3 77 18 127/80 (96) 94 10/18/18 00:00 98.3 79 18 130/90 (103) 95 10/17/18 21:00 Room Air 10/17/18 20:35 104 140/75 10/17/18 20:00 98.2 104 18 140/75 (96) 98 I&O Intake and Output 10/17/18 10/18/18 19:00 07:00 # Voids 5 2 Cardiovascular: RSR Respiratory: clear Abdomen: soft, non-tender, present bowel sounds, non-distended Extremities: no tenderness, no cyanosis Laboratory Tests Test 10/18/18 04:00 10/18/18 05:30 Sodium Level 139 MMOL/L (136-145) Potassium Level 3.6 MMOL/L (3.5-5.1) Chloride Level 103 MMOL/L (98-107) Carbon Dioxide Level 27 MMOL/L (21-32) Anion Gap 10 mmol/L (5-15) Blood Urea Nitrogen 5 mg/dL (7-18) L Creatinine 0.8 MG/DL (0.55-1.30) Estimat Glomerular Filtration Rate > 60 mL/min (>60) Glucose Level 82 MG/DL (74-106) Calcium Level 8.9 MG/DL (8.5-10.1) Total Bilirubin 0.9 MG/DL (0.2-1.0) Aspartate Amino Transf (AST/SGOT) 22 U/L (15-37) Alanine Aminotransferase (ALT/SGPT) 18 U/L (12-78) Alkaline Phosphatase 158 U/L (46-116) H C-Reactive Protein, Quantitative 0.6 mg/dL (0.00-0.90) Total Protein 7.3 G/DL (6.4-8.2) Albumin 2.8 G/DL (3.4-5.0) L Globulin 4.5 g/dL Albumin/Globulin Ratio 0.6 (1.0-2.7) L Lipase 82 U/L (73-393) White Blood Count 11.1 K/UL (4.8-10.8) H Red Blood Count 4.54 M/UL (4.20-5.40) Hemoglobin 12.6 G/DL (12.0-16.0) Hematocrit 38.5 % (37.0-47.0) Mean Corpuscular Volume 85 FL (80-99) Mean Corpuscular Hemoglobin 27.7 PG (27.0-31.0) Mean Corpuscular Hemoglobin Concent 32.7 G/DL (32.0-36.0) Red Cell Distribution Width 14.2 % (11.6-14.8) Platelet Count 351 K/UL (150-450) Mean Platelet Volume 7.9 FL (6.5-10.1) Neutrophils (%) (Auto) 72.8 % (45.0-75.0) Lymphocytes (%) (Auto) 20.7 % (20.0-45.0) Monocytes (%) (Auto) 4.5 % (1.0-10.0) Eosinophils (%) (Auto) 1.1 % (0.0-3.0) Basophils (%) (Auto) 0.9 % (0.0-2.0) Erythrocyte Sedimentation Rate 27 MM/HR (0-20) H Prothrombin Time 11.2 SEC (9.30-11.50) Prothromb Time International Ratio 1.1 (0.9-1.1) Activated Partial Thromboplast Time 25 SEC (23-33) Plan Problems: (1) Colitis (2) Diarrhea (3) Graves disease (4) CHF (congestive heart failure) (5) Hyperthyroidism (6) Leukocytosis (7) Abdominal pain Assessment & Plan: CT noted with Long segment severe inflammatory changes involving loops of the jejunum with marked mucosal thickening with associated narrowing of the lumen. No evidence of associated bowel obstruction at this time. Small amount of ascites is noted without well-defined/drainable fluid collection to suggest abscess. No pneumatosis intestinalis or free intraperitoneal air. Etiology is favored to be infectious orinflammatory. Correlation recommended. Exam stable without any pain or discomfort now leukocytosis improved afebrile, HD stable -okay for diet -AM labs -serial abdominal exams no acute surgical intervention planned will follow with recs thank you (8) Vomiting (9) Enteritis (10) Intractable abdominal pain John Camargo Oct 18, 2018 17:22
--- NOTE | 2018-10-18 19:44 | NUR ---
HAND-OFF: Report given to ethan adame RN.
--- NOTE | 2018-10-18 19:52 | NUR ---
CASE MANAGEMENT: REVIEW SI: ABD PAIN . COLITIS . DIARRHEA . GRAVES DISEASE . CHF T 96.6 HR 64 RR 18 BP 152/76 SAT 97% ROOM AIR WBC 11.1 BUN 5 ALK PHOS 158 ALBUMIN 2.8 IS: LASIX PO QD VIBRAMYCIN PO Q12HR AUGMENTIN PO Q12HR COREG PO Q12HR FULL LIQUID DIET MED/SURG STATUS DCP: PATIENT IS FROM HOME
[2018-10-18 20:00] VITALS: BP 128/69
--- NOTE | 2018-10-18 20:01 | NUR ---
NURSE NOTES: Received patient from AKASH Ordoñez. Patient is alert and oriented x4. Patient is on room air, no s/s of distress at the moment. Patient complaints of pain 4/10 when reposition side to side. Patient has a patent right AC 20G IV access. Bed is at the lowest position, call light within reach. Will continue to monitor.
--- NOTE | 2018-10-18 20:30 | NUR ---
NURSE NOTES: Pt is in bed, awake and alert. No acute distress noted. Vitas stable. Bed locked low in position,side rails up and call light within reach. Pt is instructed to call for assistance before getting out of bed. Pt will be monitored. Antonieta Clark RN ( preceptee) will be assisting in the care of this patient.
[2018-10-19] VITALS: BP 140/72
--- NOTE | 2018-10-19 03:58 | NUR ---
NURSE NOTES: Patient is in bed, sleeping, no s/s of distress. Bed at the lowest position and locked, side rails up x2, and call light is within reach. Will continue to monitor.
[2018-10-19 04:00] VITALS: BP 137/82
[2018-10-19 07:11] LABS: BASOPHILS % (AUTO) 0.6 % (0.0-2.0); EOSINOPHILS % (AUTO) 1.4 % (0.0-3.0); HEMATOCRIT 44.9 % (37.0-47.0); HEMOGLOBIN 14.2 G/DL (12.0-16.0); LYMPHOCYTES % (AUTO) 31.1 % (20.0-45.0); MEAN CORPUSCULAR VOLUME 85 FL (80-99); MONOCYTES % (AUTO) 4.9 % (1.0-10.0); PLATELET COUNT 402 K/UL (150-450); RED BLOOD COUNT 5.25 M/UL (4.20-5.40); RED CELL DISTRIBUTION WIDTH 14.9 % (11.6-14.8); WHITE BLOOD COUNT 10.6 K/UL (4.8-10.8)
--- NOTE | 2018-10-19 07:16 | NUR ---
NURSE NOTES: received report from Jaxon/AKASH Fung. patient in bed. AOx4. verbally responsive. no respiratory distress noted. mild discomfort on abd. tolerated full liquid diet. IV RAC 20g. heplock intact. bed in the lowest position. call light within reach. will continue to monitor.
--- NOTE | 2018-10-19 07:23 | NUR ---
HAND-OFF: Report given to AKASH Ordoñez.
[2018-10-19 08:00] VITALS: BP 153/89
[2018-10-19 08:14] LABS: ANION GAP 11 mmol/L (5-15); BLOOD UREA NITROGEN 4 mg/dL (7-18); CALCIUM 9.2 MG/DL (8.5-10.1); CARBON DIOXIDE 25 MMOL/L (21-32); CHLORIDE 104 MMOL/L (98-107); CREATININE 0.9 MG/DL (0.55-1.30); POTASSIUM 3.5 MMOL/L (3.5-5.1); SODIUM 140 MMOL/L (136-145)
[2018-10-19] MEDS: Carvedilol 25mg Tab ORAL SCH ×2 (08:39→20:42)
[2018-10-19] MEDS: Doxycycline Monohydrate 100mg ORAL SCH ×2 (08:39→20:33)
[2018-10-19] MEDS: Pantoprazole Inj IVP SCH (08:39)
[2018-10-19] MEDS: Lisinopril 20mg tab ORAL SCH (08:40)
[2018-10-19] MEDS: Furosemide 40mg tab ORAL SCH (08:40)
[2018-10-19] MEDS: Heparin 5000 units/ml inj SUBQ SCH ×2 (08:46→20:42)
--- NOTE | 2018-10-19 09:38 | General Progress Note ---
Assessment/Plan Problem List: (1) Graves disease ICD Codes: E05.00 - Thyrotoxicosis with diffuse goiter without thyrotoxic crisis or storm SNOMED: [id number] Assessment: not a good candidate for THACKER due to Graves' eye disease check free T4 and T3 will keep and continue on Tapazole 10 mg bid for now Subjective Allergies: Coded Allergies: DIPHENHYDRAMINE (Verified Allergy, Unknown, 10/16/18) LATEX (Verified Allergy, Unknown, 10/16/18) All Systems: reviewed and negative except above Subjective events noted Objective Last 24 Hour Vital Signs Date Time Temp Pulse Resp B/P (MAP) Pulse Ox O2 Delivery O2 Flow Rate FiO2 10/19/18 08:40 153/89 10/19/18 08:39 77 153/89 10/19/18 08:39 77 153/89 10/19/18 08:00 99.5 77 18 153/89 (110) 96 10/19/18 04:00 97.8 66 18 137/82 (100) 99 10/19/18 00:00 98.3 69 18 140/72 (94) 96 10/18/18 22:27 73 128/69 10/18/18 21:00 Room Air 10/18/18 20:00 97.7 73 18 128/69 (88) 97 10/18/18 16:00 98.4 61 19 117/69 (85) 96 10/18/18 12:00 96.6 64 18 128/73 (91) 99 Intake and Output 10/18/18 10/19/18 18:59 06:59 Intake Total 1000 ml Balance 1000 ml Other 1000 ml # Voids 1 Laboratory Tests 10/19/18 05:40: White Blood Count 10.6, Red Blood Count 5.25, Hemoglobin 14.2, Hematocrit 44.9, Mean Corpuscular Volume 85, Mean Corpuscular Hemoglobin 27.0, Mean Corpuscular Hemoglobin Concent 31.6L, Red Cell Distribution Width 14.9H, Platelet Count 402 , Mean Platelet Volume 8.1, Neutrophils (%) (Auto) 62.0, Lymphocytes (%) (Auto) 31.1, Monocytes (%) (Auto) 4.9, Eosinophils (%) (Auto) 1.4, Basophils (%) (Auto ) 0.6, Sodium Level 140, Potassium Level 3.5, Chloride Level 104, Carbon Dioxide Level 25, Anion Gap 11, Blood Urea Nitrogen 4L, Creatinine 0.9, Estimat Glomerular Filtration Rate > 60, Glucose Level 72L, Calcium Level 9.2 Height (Feet): 5 Height (Inches): 2.00 Weight (Pounds): 170 General Appearance: no apparent distress Neck: normal alignment Cardiovascular: normal rate Respiratory/Chest: lungs clear Abdomen: normal bowel sounds Pelvis: normal external exam Objective Current Medications Medications (Trade) Dose Ordered Sig/Candelaria Route PRN Reason Start Time Stop Time Status Last Admin Dose Admin Acetaminophen (Tylenol) 650 mg Q4H PRN ORAL fever 10/16/18 22:00 11/15/18 21:59 Al Hydroxide/Mg Hydroxide (Mylanta II) 30 ml Q6H PRN ORAL dyspepsia 10/16/18 22:00 11/15/18 21:59 Amlodipine Besylate (Norvasc) 10 mg DAILY ORAL 10/17/18 09:00 11/16/18 08:59 10/19/18 08:39 Amoxicillin/ Clavulanate Potassium (Augmentin) 500 mg Q12HR ORAL 10/17/18 11:00 10/24/18 10:59 10/19/18 08:39 Carvedilol (Coreg) 25 mg EVERY 12 HOURS ORAL 10/17/18 09:00 11/16/18 08:59 10/19/18 08:39 Dextrose (Dextrose 50%) 25 ml Q30M PRN IV Hypoglycemia 10/16/18 22:00 11/15/18 21:59 Dextrose (Dextrose 50%) 50 ml Q30M PRN IV Hypoglycemia 10/16/18 22:00 11/15/18 21:59 Doxycycline Monohydrate (Vibramycin) 100 mg EVERY 12 HOURS ORAL 10/18/18 21:00 10/20/18 23:59 10/19/18 08:39 Furosemide (Lasix) 40 mg DAILY ORAL 10/19/18 09:00 11/18/18 08:59 10/19/18 08:40 Heparin Sodium (Porcine) (Heparin 5000 units/ml) 5,000 units EVERY 12 HOURS SUBQ 10/17/18 09:00 11/16/18 08:59 Lisinopril (Prinivil) 20 mg DAILY ORAL 10/17/18 09:00 11/16/18 08:59 10/19/18 08:40 Methimazole (Tapazole) 10 mg BID ORAL 10/18/18 18:00 11/17/18 17:59 10/19/18 08:39 Morphine Sulfate (Morphine Sulfate) 2 mg Q4H PRN IVP severe Pain (Pain Scale 7-10) 10/16/18 22:00 10/23/18 21:59 10/17/18 20:42 Ondansetron HCl (Zofran) 4 mg Q6H PRN IVP Nausea & Vomiting 10/16/18 22:00 11/15/18 21:59 Pantoprazole (Protonix) 40 mg DAILY IVP 10/17/18 09:00 11/16/18 08:59 10/19/18 08:39 Temazepam (Restoril) 15 mg HSPRN PRN ORAL Insomnia 10/16/18 22:00 10/23/18 21:59 10/18/18 01:43 Ever Pedersen MD Oct 19, 2018 09:38
--- NOTE | 2018-10-19 11:27 | General Progress Note ---
Assessment/Plan Plan: Assessment - Jejunitis - ? campylobacter - ? Crohns (cousin with Crohns) - post abx diarrhea - r/o C Diff Recommendations - Abx per ID - would include PO vanco and zithromax - check C Diff - Check stool Cx - will need f/u imaging - MRE - once better Thank you Isabelle Weinstein MD Subjective Allergies: Coded Allergies: DIPHENHYDRAMINE (Verified Allergy, Unknown, 10/16/18) LATEX (Verified Allergy, Unknown, 10/16/18) Objective Last 24 Hour Vital Signs Date Time Temp Pulse Resp B/P (MAP) Pulse Ox O2 Delivery O2 Flow Rate FiO2 10/19/18 09:00 Room Air 10/19/18 08:40 153/89 10/19/18 08:39 77 153/89 10/19/18 08:39 77 153/89 10/19/18 08:00 99.5 77 18 153/89 (110) 96 10/19/18 04:00 97.8 66 18 137/82 (100) 99 10/19/18 00:00 98.3 69 18 140/72 (94) 96 10/18/18 22:27 73 128/69 10/18/18 21:00 Room Air 10/18/18 20:00 97.7 73 18 128/69 (88) 97 10/18/18 16:00 98.4 61 19 117/69 (85) 96 10/18/18 12:00 96.6 64 18 128/73 (91) 99 Intake and Output 10/18/18 10/19/18 19:00 07:00 Intake Total 1000 ml Balance 1000 ml Other 1000 ml # Voids 1 Laboratory Tests 10/19/18 05:40: White Blood Count 10.6, Red Blood Count 5.25, Hemoglobin 14.2, Hematocrit 44.9, Mean Corpuscular Volume 85, Mean Corpuscular Hemoglobin 27.0, Mean Corpuscular Hemoglobin Concent 31.6L, Red Cell Distribution Width 14.9H, Platelet Count 402 , Mean Platelet Volume 8.1, Neutrophils (%) (Auto) 62.0, Lymphocytes (%) (Auto) 31.1, Monocytes (%) (Auto) 4.9, Eosinophils (%) (Auto) 1.4, Basophils (%) (Auto ) 0.6, Sodium Level 140, Potassium Level 3.5, Chloride Level 104, Carbon Dioxide Level 25, Anion Gap 11, Blood Urea Nitrogen 4L, Creatinine 0.9, Estimat Glomerular Filtration Rate > 60, Glucose Level 72L, Calcium Level 9.2 Height (Feet): 5 Height (Inches): 2.00 Weight (Pounds): 170 Isabelle Weinstein MD Oct 19, 2018 11:27
[2018-10-19 12:00] VITALS: BP 145/84
--- NOTE | 2018-10-19 13:36 | Internal Med Progress Note ---
Subjective Date of Service: Oct 19, 2018 Physician Name Filipe Youngblood Attending Physician Justin Neil MD Current Medications Medications (Trade) Dose Ordered Sig/Candelaria Route PRN Reason Start Time Stop Time Status Last Admin Dose Admin Acetaminophen (Tylenol) 650 mg Q4H PRN ORAL fever 10/16/18 22:00 11/15/18 21:59 Al Hydroxide/Mg Hydroxide (Mylanta II) 30 ml Q6H PRN ORAL dyspepsia 10/16/18 22:00 11/15/18 21:59 Amlodipine Besylate (Norvasc) 10 mg DAILY ORAL 10/17/18 09:00 11/16/18 08:59 10/19/18 08:39 Amoxicillin/ Clavulanate Potassium (Augmentin) 500 mg Q12HR ORAL 10/17/18 11:00 10/24/18 10:59 10/19/18 08:39 Carvedilol (Coreg) 25 mg EVERY 12 HOURS ORAL 10/17/18 09:00 11/16/18 08:59 10/19/18 08:39 Dextrose (Dextrose 50%) 25 ml Q30M PRN IV Hypoglycemia 10/16/18 22:00 11/15/18 21:59 Dextrose (Dextrose 50%) 50 ml Q30M PRN IV Hypoglycemia 10/16/18 22:00 11/15/18 21:59 Doxycycline Monohydrate (Vibramycin) 100 mg EVERY 12 HOURS ORAL 10/18/18 21:00 10/20/18 23:59 10/19/18 08:39 Furosemide (Lasix) 40 mg DAILY ORAL 10/19/18 09:00 11/18/18 08:59 10/19/18 08:40 Heparin Sodium (Porcine) (Heparin 5000 units/ml) 5,000 units EVERY 12 HOURS SUBQ 10/17/18 09:00 11/16/18 08:59 Lisinopril (Prinivil) 20 mg DAILY ORAL 10/17/18 09:00 11/16/18 08:59 10/19/18 08:40 Methimazole (Tapazole) 10 mg BID ORAL 10/18/18 18:00 11/17/18 17:59 10/19/18 08:39 Morphine Sulfate (Morphine Sulfate) 2 mg Q4H PRN IVP severe Pain (Pain Scale 7-10) 10/16/18 22:00 10/23/18 21:59 10/17/18 20:42 Ondansetron HCl (Zofran) 4 mg Q6H PRN IVP Nausea & Vomiting 10/16/18 22:00 11/15/18 21:59 Pantoprazole (Protonix) 40 mg DAILY IVP 10/17/18 09:00 11/16/18 08:59 10/19/18 08:39 Temazepam (Restoril) 15 mg HSPRN PRN ORAL Insomnia 10/16/18 22:00 10/23/18 21:59 10/18/18 01:43 Allergies: Coded Allergies: DIPHENHYDRAMINE (Verified Allergy, Unknown, 10/16/18) LATEX (Verified Allergy, Unknown, 10/16/18) ROS Limited/Unobtainable: No Constitutional: Reports: no symptoms HEENT: Reports: no symptoms Cardiovascular: Reports: no symptoms Respiratory: Reports: no symptoms Gastrointestinal/Abdominal: Reports: abdominal pain, nausea, vomiting Genitourinary: Reports: no symptoms Neurologic/Psychiatric: Reports: no symptoms Subjective 38 YO F admitted with nausea, vomiting, diarrhea and abdominal pain. Now enteritis. Cover for Int Med-DR Neil Objective Last Vital Signs Date Time Temp Pulse Resp B/P (MAP) Pulse Ox O2 Delivery O2 Flow Rate FiO2 10/19/18 12:00 97.9 60 18 145/84 (104) 98 10/19/18 09:00 Room Air Laboratory Tests Test 10/19/18 05:40 White Blood Count 10.6 K/UL (4.8-10.8) Red Blood Count 5.25 M/UL (4.20-5.40) Hemoglobin 14.2 G/DL (12.0-16.0) Hematocrit 44.9 % (37.0-47.0) Mean Corpuscular Volume 85 FL (80-99) Mean Corpuscular Hemoglobin 27.0 PG (27.0-31.0) Mean Corpuscular Hemoglobin Concent 31.6 G/DL (32.0-36.0) L Red Cell Distribution Width 14.9 % (11.6-14.8) H Platelet Count 402 K/UL (150-450) Mean Platelet Volume 8.1 FL (6.5-10.1) Neutrophils (%) (Auto) 62.0 % (45.0-75.0) Lymphocytes (%) (Auto) 31.1 % (20.0-45.0) Monocytes (%) (Auto) 4.9 % (1.0-10.0) Eosinophils (%) (Auto) 1.4 % (0.0-3.0) Basophils (%) (Auto) 0.6 % (0.0-2.0) Sodium Level 140 MMOL/L (136-145) Potassium Level 3.5 MMOL/L (3.5-5.1) Chloride Level 104 MMOL/L (98-107) Carbon Dioxide Level 25 MMOL/L (21-32) Anion Gap 11 mmol/L (5-15) Blood Urea Nitrogen 4 mg/dL (7-18) L Creatinine 0.9 MG/DL (0.55-1.30) Estimat Glomerular Filtration Rate > 60 mL/min (>60) Glucose Level 72 MG/DL (74-106) L Calcium Level 9.2 MG/DL (8.5-10.1) Microbiology Date/Time Source Procedure Growth Status 10/17/18 16:00 Nasopharynx - Final Complete 10/17/18 16:00 Nasopharynx - Final Complete 10/16/18 23:00 Nasal Nares MRSA Culture - Final NO METHICILLIN RESISTANT STAPH AUREUS... Complete 10/16/18 23:00 Rectum VRE Culture - Final NO VANCOMYCIN RESISTANT ENTEROCOCCUS ... Complete 10/16/18 23:00 Rectum - Final NO CARBAPENEM-RESISTANT ENTEROBACTERI... Complete Intake and Output 10/18/18 10/19/18 19:00 07:00 Intake Total 1000 ml Balance 1000 ml Other 1000 ml # Voids 1 Objective PHYSICAL EXAMINATION: GENERAL: The patient is a well-developed and well-nourished female, in no apparent distress. HEENT: Eyes, pupils are equal and responsive to light and accommodation. Extraocular movements are intact. NECK: Supple without lymphadenopathy. CHEST: Lungs are clear to auscultation bilaterally without wheezes or rales. CARDIOVASCULAR: Regular rhythm and rate. S1 and S2 are normal without murmurs, rubs, or gallops. ABDOMEN: Soft and diffusely tender with decreased bowel sounds. No evidence of hepatosplenomegaly. Currently, no rebound or guarding noted. EXTREMITIES: Negative for clubbing, cyanosis, or edema. RECTAL/GENITAL: Refused. NEUROLOGIC: Cranial nerves II through XII are grossly intact without focal deficits. Motor strength is 5/5 bilaterally. Deep tendon reflexes are 2+ plantar. A CT scan of the abdomen showed severe inflammatory changes involving loops of the jejunum with marked mucosal thickening consistent with enteritis. Assessment/Plan Assessment/Plan ASSESSMENT: This is a 38-year-old female. 1. Abdominal pain. 2. Nausea and vomiting. 3. Diarrhea. 4. Enteritis. 5. Hypertension. 6. Hypothyroidism. 7. Congestive heart failure. TREATMENT: 1. Abdominal pain/nausea/vomiting/diarrhea/enteritis. A Gastroenterology consultation has been obtained with Dr. Nathaniel Perera. Stool cultures are pending. We will follow recommendations of gastroenterology. 2. Hypertension. Continue amlodipine and Coreg as above. 3. Hyperthyroidism. Continue methenamine as above. 4. Congestive heart failure. Cardiology consultation has been obtained with Dr. Ralph Abdalla. 5. antibiotics=amoxicillin and doxycycline per Filipe Hay MD Oct 19, 2018 13:36
--- NOTE | 2018-10-19 15:10 | Surgery Progress Note ---
Surgery Progress Note Subjective Additional Comments pain almost resolved. tolerating diet. + diarrhea. no n/v/f/c. labs improved Objective Last 24 Hour Vital Signs Date Time Temp Pulse Resp B/P (MAP) Pulse Ox O2 Delivery O2 Flow Rate FiO2 10/19/18 12:00 97.9 60 18 145/84 (104) 98 10/19/18 09:00 Room Air 10/19/18 08:40 153/89 10/19/18 08:39 77 153/89 10/19/18 08:39 77 153/89 10/19/18 08:00 99.5 77 18 153/89 (110) 96 10/19/18 04:00 97.8 66 18 137/82 (100) 99 10/19/18 00:00 98.3 69 18 140/72 (94) 96 10/18/18 22:27 73 128/69 10/18/18 21:00 Room Air 10/18/18 20:00 97.7 73 18 128/69 (88) 97 10/18/18 16:00 98.4 61 19 117/69 (85) 96 I&O Intake and Output 10/18/18 10/19/18 19:00 07:00 Intake Total 1000 ml Balance 1000 ml Other 1000 ml # Voids 1 Cardiovascular: RSR Respiratory: clear Abdomen: soft, flat, non-tender, present bowel sounds, non-distended Extremities: no edema, no tenderness, no cyanosis Laboratory Tests Test 10/19/18 05:40 White Blood Count 10.6 K/UL (4.8-10.8) Red Blood Count 5.25 M/UL (4.20-5.40) Hemoglobin 14.2 G/DL (12.0-16.0) Hematocrit 44.9 % (37.0-47.0) Mean Corpuscular Volume 85 FL (80-99) Mean Corpuscular Hemoglobin 27.0 PG (27.0-31.0) Mean Corpuscular Hemoglobin Concent 31.6 G/DL (32.0-36.0) L Red Cell Distribution Width 14.9 % (11.6-14.8) H Platelet Count 402 K/UL (150-450) Mean Platelet Volume 8.1 FL (6.5-10.1) Neutrophils (%) (Auto) 62.0 % (45.0-75.0) Lymphocytes (%) (Auto) 31.1 % (20.0-45.0) Monocytes (%) (Auto) 4.9 % (1.0-10.0) Eosinophils (%) (Auto) 1.4 % (0.0-3.0) Basophils (%) (Auto) 0.6 % (0.0-2.0) Sodium Level 140 MMOL/L (136-145) Potassium Level 3.5 MMOL/L (3.5-5.1) Chloride Level 104 MMOL/L (98-107) Carbon Dioxide Level 25 MMOL/L (21-32) Anion Gap 11 mmol/L (5-15) Blood Urea Nitrogen 4 mg/dL (7-18) L Creatinine 0.9 MG/DL (0.55-1.30) Estimat Glomerular Filtration Rate > 60 mL/min (>60) Glucose Level 72 MG/DL (74-106) L Calcium Level 9.2 MG/DL (8.5-10.1) Plan Problems: (1) Colitis (2) Diarrhea (3) Graves disease (4) CHF (congestive heart failure) (5) Hyperthyroidism (6) Leukocytosis (7) Abdominal pain Assessment & Plan: CT noted with Long segment severe inflammatory changes involving loops of the jejunum with marked mucosal thickening with associated narrowing of the lumen. No evidence of associated bowel obstruction at this time. Small amount of ascites is noted without well-defined/drainable fluid collection to suggest abscess. No pneumatosis intestinalis or free intraperitoneal air. Etiology is favored to be infectious orinflammatory. Correlation recommended. Exam stable without any pain or discomfort now leukocytosis improved afebrile, HD stable -okay for diet -AM labs -serial abdominal exams no acute surgical intervention planned will follow with recs d/c planning thank you (8) Vomiting (9) Enteritis (10) Intractable abdominal pain John Camargo Oct 19, 2018 15:10
[2018-10-19 16:00] VITALS: BP 122/68
--- NOTE | 2018-10-19 19:07 | NUR ---
HAND-OFF: Report given to Trupti Newell RN.
[2018-10-19 20:00] VITALS: BP 129/72
--- NOTE | 2018-10-19 20:00 | NUR ---
NURSE NOTES: Patient received in bed, aaox4, denies pain at this time. IV is intact and patent. No complaints at this time. Call light in reach. Will continue to monitor.
--- NOTE | 2018-10-19 21:00 | NUR ---
NURSE NOTES: Patient stated she usually takes lasix 40mg twice daily. Med reconciliation updated. left message to Dr. Fowler. Awaiting response from MD. At this time, patient is not congested at this time, VS are stable. Will continue to monitor.
--- NOTE | 2018-10-19 22:00 | Consultation ---
DATE OF CONSULTATION: 10/18/2018 GASTROENTEROLOGY CONSULTATION REPORT CHIEF COMPLAINT: I was asked to see this patient by Dr. Justin Neil for evaluation of abdominal symptoms. HISTORY OF PRESENT ILLNESS: The patient is a pleasant 38-year-old woman who came into the hospital with acute onset of severe nausea and vomiting. This process has been going on for about an hour or so before she decided to come to the emergency room. She also has some abdominal cramps and diarrhea. She had some increased abdominal pain after eating and she has to eat slow. However, this is the first time she has had this presentation and she has no contacts with the abdominal symptoms. She has a dog, but the dog is not ill. The patient's cousin, who is her aunt's son has Crohn disease and that is the only family history of inflammatory bowel disease. She states she normally has bowel movements two to three times a day, which are soft. She has no nighttime bowel movements. She has history of pilonidal cyst in her back, but it appears to be near the coccyx and not near the anus. The CT scan showed some degree of jejunitis. It should be noted that she recently received antibiotics at an outside hospital when she presented with pilonidal cyst abscess. PAST MEDICAL HISTORY: History of hypertension, history of hyperthyroidism, history of thyroid goiter, and pilonidal cysts. FAMILY HISTORY: Positive for Crohn disease in her cousin. SOCIAL HISTORY: The patient is single. She has no children. She does not smoke or drink alcohol. MEDICATIONS: See the chart list for details. REVIEW OF SYSTEMS: Otherwise negative. PHYSICAL EXAMINATION: GENERAL: Pleasant, obese, woman, seen in the presence of a female nurse at bedside. HEENT: Normocephalic and atraumatic. Sclerae anicteric. Oropharynx clear. NECK: Supple. CHEST: Clear to auscultation. CARDIOVASCULAR: Revealed regular rate. ABDOMEN: Soft, nontender except for mild tenderness in the left upper quadrant without guarding or rebound. BACK: Buttock area exam showed closed pilonidal cysts in the coccyx area. EXTREMITIES: Revealed no edema. ASSESSMENT: This patient presents with diarrhea and jejunitis on CT scan. The differential diagnosis would most notably include Campylobacter duodenitis, which should be treated with Macrobid antibiotic. Other possibilities for generalized infections include Clostridium difficile given the recent antibiotics. Inflammatory bowel disease is the other consideration given the family history of inflammatory bowel disease. She can be evaluated for this at a later date. For the time being, I will add the antibiotic of macrolid class to cover Campylobacter and await stool cultures. She has been hydrated and clear liquid diet can be given as tolerated. RECOMMENDATIONS: Per above discussion and per orders written in the chart. Thank you for asking me to participate in the care of this patient. Isabelle Weinstein M.D. DR: Lucie JOB#: [id number] CC: JONA
[2018-10-20] VITALS: BP 135/82
--- NOTE | 2018-10-20 06:38 | General Progress Note ---
Assessment/Plan Problem List: (1) Graves disease ICD Codes: E05.00 - Thyrotoxicosis with diffuse goiter without thyrotoxic crisis or storm SNOMED: 121113347 Assessment: not a good candidate for THACKER due to Graves' eye disease check free T4 and T3 will keep and continue on Tapazole 10 mg bid for now Subjective Allergies: Coded Allergies: DIPHENHYDRAMINE (Verified Allergy, Unknown, 10/16/18) LATEX (Verified Allergy, Unknown, 10/16/18) All Systems: reviewed and negative except above Subjective events noted Objective Last 24 Hour Vital Signs Date Time Temp Pulse Resp B/P (MAP) Pulse Ox O2 Delivery O2 Flow Rate FiO2 10/20/18 00:00 98.3 53 17 135/82 (99) 100 10/19/18 21:00 Room Air 10/19/18 20:42 53 129/72 10/19/18 20:00 98.6 53 18 129/72 (91) 97 10/19/18 16:00 98.3 58 18 122/68 (86) 96 10/19/18 12:00 97.9 60 18 145/84 (104) 98 10/19/18 09:00 Room Air 10/19/18 08:40 153/89 10/19/18 08:39 77 153/89 10/19/18 08:39 77 153/89 10/19/18 08:00 99.5 77 18 153/89 (110) 96 Intake and Output 10/19/18 10/20/18 18:59 06:59 Intake Total 480 ml Balance 480 ml Intake Oral 480 ml # Voids 2 2 # Bowel Movements 2 Height (Feet): 5 Height (Inches): 2.00 Weight (Pounds): 170 General Appearance: no apparent distress Neck: normal alignment Cardiovascular: normal rate Respiratory/Chest: lungs clear Abdomen: normal bowel sounds Objective Current Medications Medications (Trade) Dose Ordered Sig/Candelaria Route PRN Reason Start Time Stop Time Status Last Admin Dose Admin Acetaminophen (Tylenol) 650 mg Q4H PRN ORAL fever 10/16/18 22:00 11/15/18 21:59 Al Hydroxide/Mg Hydroxide (Mylanta II) 30 ml Q6H PRN ORAL dyspepsia 10/16/18 22:00 11/15/18 21:59 Amlodipine Besylate (Norvasc) 10 mg DAILY ORAL 10/17/18 09:00 11/16/18 08:59 10/19/18 08:39 Amoxicillin/ Clavulanate Potassium (Augmentin) 500 mg Q12HR ORAL 10/17/18 11:00 10/24/18 10:59 10/19/18 20:33 Carvedilol (Coreg) 25 mg EVERY 12 HOURS ORAL 10/17/18 09:00 11/16/18 08:59 10/19/18 08:39 Dextrose (Dextrose 50%) 25 ml Q30M PRN IV Hypoglycemia 10/16/18 22:00 11/15/18 21:59 Dextrose (Dextrose 50%) 50 ml Q30M PRN IV Hypoglycemia 10/16/18 22:00 11/15/18 21:59 Doxycycline Monohydrate (Vibramycin) 100 mg EVERY 12 HOURS ORAL 10/18/18 21:00 10/20/18 23:59 10/19/18 20:33 Furosemide (Lasix) 40 mg DAILY ORAL 10/19/18 09:00 11/18/18 08:59 10/19/18 08:40 Heparin Sodium (Porcine) (Heparin 5000 units/ml) 5,000 units EVERY 12 HOURS SUBQ 10/17/18 09:00 11/16/18 08:59 Lisinopril (Prinivil) 20 mg DAILY ORAL 10/17/18 09:00 11/16/18 08:59 10/19/18 08:40 Methimazole (Tapazole) 10 mg BID ORAL 10/18/18 18:00 11/17/18 17:59 10/19/18 17:34 Morphine Sulfate (Morphine Sulfate) 2 mg Q4H PRN IVP severe Pain (Pain Scale 7-10) 10/16/18 22:00 10/23/18 21:59 10/17/18 20:42 Ondansetron HCl (Zofran) 4 mg Q6H PRN IVP Nausea & Vomiting 10/16/18 22:00 11/15/18 21:59 Pantoprazole (Protonix) 40 mg DAILY IVP 10/17/18 09:00 11/16/18 08:59 10/19/18 08:39 Temazepam (Restoril) 15 mg HSPRN PRN ORAL Insomnia 10/16/18 22:00 10/23/18 21:59 10/20/18 02:14 Ever Pedersen MD Oct 20, 2018 06:38
--- NOTE | 2018-10-20 07:23 | NUR ---
NURSE NOTES: RN received pt resting in bed in stable condition. No acute distress or SOB. Bed in low, locked position, call light within reach. Will continue plan of care.
--- NOTE | 2018-10-20 07:23 | NUR ---
HAND-OFF: Report given to Georgina BUSTOS.
[2018-10-20 08:00] VITALS: BP 140/80
[2018-10-20] MEDS: Pantoprazole Inj IVP SCH (08:59)
[2018-10-20] MEDS: Heparin 5000 units/ml inj SUBQ SCH (09:00)
[2018-10-20] MEDS: Carvedilol 25mg Tab ORAL SCH (09:00)
[2018-10-20] MEDS: Doxycycline Monohydrate 100mg ORAL SCH (09:00)
[2018-10-20] MEDS: Furosemide 40mg tab ORAL SCH (09:00)
[2018-10-20] MEDS: Lisinopril 20mg tab ORAL SCH (09:01)
[2018-10-20 10:31] LABS: ANION GAP 10 mmol/L (5-15); BLOOD UREA NITROGEN 4 mg/dL (7-18); CALCIUM 9.3 MG/DL (8.5-10.1); CARBON DIOXIDE 26 MMOL/L (21-32); CHLORIDE 104 MMOL/L (98-107); CREATININE 0.9 MG/DL (0.55-1.30); POTASSIUM 3.7 MMOL/L (3.5-5.1); SODIUM 140 MMOL/L (136-145)
[2018-10-20 10:40] LABS: BASOPHILS % (AUTO) 0.8 % (0.0-2.0); EOSINOPHILS % (AUTO) 2.7 % (0.0-3.0); HEMATOCRIT 42.1 % (37.0-47.0); HEMOGLOBIN 13.6 G/DL (12.0-16.0); LYMPHOCYTES % (AUTO) 31.2 % (20.0-45.0); MEAN CORPUSCULAR VOLUME 85 FL (80-99); MONOCYTES % (AUTO) 6.4 % (1.0-10.0); NEUTROPHILS % (AUTO) 58.9 % (45.0-75.0); PLATELET COUNT 374 K/UL (150-450); RED BLOOD COUNT 4.95 M/UL (4.20-5.40); RED CELL DISTRIBUTION WIDTH 14.9 % (11.6-14.8); WHITE BLOOD COUNT 6.9 K/UL (4.8-10.8)
--- NOTE | 2018-10-20 11:11 | GI Progress Note ---
Assessment/Plan Problems: (1) Intractable abdominal pain ICD Codes: R10.9 - Unspecified abdominal pain SNOMED: 27048641, [id number] (2) Enteritis ICD Codes: K52.9 - Noninfective gastroenteritis and colitis, unspecified SNOMED: 47522451 (3) Vomiting ICD Codes: R11.10 - Vomiting, unspecified SNOMED: [id number], [id number] Qualifiers: Qualified Codes: R11.2 - Nausea with vomiting, unspecified (4) Abdominal pain ICD Codes: R10.9 - Unspecified abdominal pain SNOMED: [id number] Qualifiers: Qualified Codes: R10.9 - Unspecified abdominal pain (5) Diarrhea ICD Codes: R19.7 - Diarrhea, unspecified SNOMED: 38398067 Qualifiers: Qualified Codes: R19.7 - Diarrhea, unspecified (6) Colitis ICD Codes: K52.9 - Noninfective gastroenteritis and colitis, unspecified SNOMED: 69343870 Status: stable Status Narrative Discussed with Dr. Perera Assessment/Plan C. difficile negative No conclusive evidence that patient is having active Crohn's flare Jejunitis ? campylobacter Recommendations Abx per ID - would include PO vanco and zithromax Follow-up stool culture Okay to advance diet PPI IV and p.o. hydration Follow-up The patient was seen and examined at bedside and all new and available data was reviewed in the patients chart. I agree with the above findings, impression and plan. (Patient seen earlier today. Signature stamp does not reflect patient encounter time.). - Nathaniel Perera MD Subjective Subjective The patient denies any recent diarrhea Tolerating food Objective Last 24 Hour Vital Signs Date Time Temp Pulse Resp B/P (MAP) Pulse Ox O2 Delivery O2 Flow Rate FiO2 10/20/18 09:01 140/80 10/20/18 09:00 64 140/80 10/20/18 09:00 64 140/80 10/20/18 08:00 98.2 64 140/80 (100) 10/20/18 00:00 98.3 53 17 135/82 (99) 100 10/19/18 21:00 Room Air 10/19/18 20:42 53 129/72 10/19/18 20:00 98.6 53 18 129/72 (91) 97 4/21/19 16:00 98.3 58 18 122/68 (86) 96 10/19/18 12:00 97.9 60 18 145/84 (104) 98 Intake and Output 10/19/18 10/20/18 18:59 06:59 Intake Total 480 ml Balance 480 ml Intake Oral 480 ml # Voids 2 2 # Bowel Movements 2 Laboratory Tests Test 10/20/18 10:05 White Blood Count 6.9 K/UL (4.8-10.8) Red Blood Count 4.95 M/UL (4.20-5.40) Hemoglobin 13.6 G/DL (12.0-16.0) Hematocrit 42.1 % (37.0-47.0) Mean Corpuscular Volume 85 FL (80-99) Mean Corpuscular Hemoglobin 27.4 PG (27.0-31.0) Mean Corpuscular Hemoglobin Concent 32.2 G/DL (32.0-36.0) Red Cell Distribution Width 14.9 % (11.6-14.8) H Platelet Count 374 K/UL (150-450) Mean Platelet Volume 8.3 FL (6.5-10.1) Neutrophils (%) (Auto) 58.9 % (45.0-75.0) Lymphocytes (%) (Auto) 31.2 % (20.0-45.0) Monocytes (%) (Auto) 6.4 % (1.0-10.0) Eosinophils (%) (Auto) 2.7 % (0.0-3.0) Basophils (%) (Auto) 0.8 % (0.0-2.0) Sodium Level 140 MMOL/L (136-145) Potassium Level 3.7 MMOL/L (3.5-5.1) Chloride Level 104 MMOL/L (98-107) Carbon Dioxide Level 26 MMOL/L (21-32) Anion Gap 10 mmol/L (5-15) Blood Urea Nitrogen 4 mg/dL (7-18) L Creatinine 0.9 MG/DL (0.55-1.30) Estimat Glomerular Filtration Rate > 60 mL/min (>60) Glucose Level 113 MG/DL (74-106) H Calcium Level 9.3 MG/DL (8.5-10.1) Height (Feet): 5 Height (Inches): 2.00 Weight (Pounds): 170 General Appearance: WD/WN, no apparent distress, alert Cardiovascular: normal rate Respiratory/Chest: normal breath sounds, no respiratory distress Abdominal Exam: normal bowel sounds, non tender, soft Extremities: normal range of motion, non-tender Demetrio Larose NP Oct 20, 2018 11:11
[2018-10-20 12:00] VITALS: BP 123/73
--- NOTE | 2018-10-20 12:25 | Pulmonology Progress Note ---
Assessment/Plan Problems: (1) Intractable abdominal pain (2) Enteritis (3) Diarrhea (4) Graves disease (5) CHF (congestive heart failure) (6) Hyperthyroidism Assessment/Plan improving all noted tolerating diet Subjective ROS Limited/Unobtainable: No Constitutional: Reports: no symptoms HEENT: Repors: no symptoms Respiratory: Reports: no symptoms Allergies: Coded Allergies: DIPHENHYDRAMINE (Verified Allergy, Unknown, 10/16/18) LATEX (Verified Allergy, Unknown, 10/16/18) Objective Last 24 Hour Vital Signs Date Time Temp Pulse Resp B/P (MAP) Pulse Ox O2 Delivery O2 Flow Rate FiO2 10/20/18 09:01 140/80 10/20/18 09:00 64 140/80 10/20/18 09:00 64 140/80 10/20/18 08:00 98.2 64 140/80 (100) 10/20/18 00:00 98.3 53 17 135/82 (99) 100 10/19/18 21:00 Room Air 10/19/18 20:42 53 129/72 10/19/18 20:00 98.6 53 18 129/72 (91) 97 10/19/18 16:00 98.3 58 18 122/68 (86) 96 Intake and Output 10/19/18 10/20/18 18:59 06:59 Intake Total 480 ml Balance 480 ml Intake Oral 480 ml # Voids 2 2 # Bowel Movements 2 HEENT: normocephalic, anicteric Respiratory/Chest: chest wall non-tender, normal breath sounds Breasts: no masses Cardiovascular: normal rate Abdomen: normal bowel sounds, non distended Extremities: no cyanosis Skin: no rash Microbiology Date/Time Source Procedure Growth Status 10/17/18 16:00 Nasopharynx - Final Complete 10/17/18 16:00 Nasopharynx - Final Complete 10/19/18 10:00 Stool Clostridium difficile Toxin Assay - Final Complete 10/17/18 16:00 Rectum VRE Culture - Final NO VANCOMYCIN RESISTANT ENTEROCOCCUS ... Complete Laboratory Tests 10/20/18 10:05: White Blood Count 6.9, Red Blood Count 4.95, Hemoglobin 13.6, Hematocrit 42.1, Mean Corpuscular Volume 85, Mean Corpuscular Hemoglobin 27.4, Mean Corpuscular Hemoglobin Concent 32.2, Red Cell Distribution Width 14.9H, Platelet Count 374, Mean Platelet Volume 8.3, Neutrophils (%) (Auto) 58.9, Lymphocytes (%) (Auto) 31.2, Monocytes (%) (Auto) 6.4, Eosinophils (%) (Auto) 2.7, Basophils (%) (Auto ) 0.8, Sodium Level 140, Potassium Level 3.7, Chloride Level 104, Carbon Dioxide Level 26, Anion Gap 10, Blood Urea Nitrogen 4L, Creatinine 0.9, Estimat Glomerular Filtration Rate > 60, Glucose Level 113H, Calcium Level 9.3 Current Medications Medications (Trade) Dose Ordered Sig/Candelaria Route PRN Reason Start Time Stop Time Status Last Admin Dose Admin Acetaminophen (Tylenol) 650 mg Q4H PRN ORAL fever 10/16/18 22:00 11/15/18 21:59 Al Hydroxide/Mg Hydroxide (Mylanta II) 30 ml Q6H PRN ORAL dyspepsia 10/16/18 22:00 11/15/18 21:59 Amlodipine Besylate (Norvasc) 10 mg DAILY ORAL 10/17/18 09:00 11/16/18 08:59 10/20/18 09:00 Amoxicillin/ Clavulanate Potassium (Augmentin) 500 mg Q12HR ORAL 10/17/18 11:00 10/24/18 10:59 10/20/18 09:00 Carvedilol (Coreg) 25 mg EVERY 12 HOURS ORAL 10/17/18 09:00 11/16/18 08:59 10/20/18 09:00 Dextrose (Dextrose 50%) 25 ml Q30M PRN IV Hypoglycemia 10/16/18 22:00 11/15/18 21:59 Dextrose (Dextrose 50%) 50 ml Q30M PRN IV Hypoglycemia 10/16/18 22:00 11/15/18 21:59 Doxycycline Monohydrate (Vibramycin) 100 mg EVERY 12 HOURS ORAL 10/18/18 21:00 10/20/18 23:59 10/20/18 09:00 Furosemide (Lasix) 40 mg DAILY ORAL 10/19/18 09:00 11/18/18 08:59 10/20/18 09:00 Heparin Sodium (Porcine) (Heparin 5000 units/ml) 5,000 units EVERY 12 HOURS SUBQ 10/17/18 09:00 11/16/18 08:59 Lisinopril (Prinivil) 20 mg DAILY ORAL 10/17/18 09:00 11/16/18 08:59 10/20/18 09:01 Methimazole (Tapazole) 10 mg BID ORAL 10/18/18 18:00 11/17/18 17:59 10/20/18 08:59 Morphine Sulfate (Morphine Sulfate) 2 mg Q4H PRN IVP severe Pain (Pain Scale 7-10) 10/16/18 22:00 10/23/18 21:59 10/17/18 20:42 Ondansetron HCl (Zofran) 4 mg Q6H PRN IVP Nausea & Vomiting 10/16/18 22:00 11/15/18 21:59 Pantoprazole (Protonix) 40 mg DAILY IVP 10/17/18 09:00 11/16/18 08:59 10/20/18 08:59 Temazepam (Restoril) 15 mg HSPRN PRN ORAL Insomnia 10/16/18 22:00 10/23/18 21:59 10/20/18 02:14 Brittany Fowler MD Oct 20, 2018 12:25
--- NOTE | 2018-10-20 13:11 | Infectious Diseases Prog Note ---
Assessment/Plan Assessment/Plan Assessment: Abd pain/Vomiting- improving- likely in the setting of dehydration- Jejunitis per CT -CT abd/p - * Long segment severe inflammatory changes involving loops of the jejunum with marked mucosal thickening with associated narrowing of the lumen. No evidence of associated bowel obstruction at this time. Small amount of ascites is noted without well-defined/drainable fluid collection to suggest abscess. No pneumatosis intestinalis or free intraperitoneal air. Urology is favored to be infectious or inflammatory. Correlation recommended. * Diverticulosis without evidence of acute diverticulitis. * Normal appendix. * Apparent bladder wall thickening likely related to underdistention. -stool cx Non lactose blade boner (ID pending) Diarrhea x1- -Cdiff - neg Afebrile Leukocytosis; resolved- ?reactive -u/a neg -CXR: p Recent buttock pilonidal cyst/abscess; resolving HTN hyperthyroidism on methimazole Plan: - D/c Doxycycline and Augmentin abx #10 and start PO Azithromycin 500mg daily x 3 days for jejunitis -f/u final stool cx -f/u cx -Monitor CBC/CMP, temperatures -f/u stool cx -discharge planning Thank you for this consultation. Will continue to follow along with you. Discussed with RN and Dr Fowler Subjective Allergies: Coded Allergies: DIPHENHYDRAMINE (Verified Allergy, Unknown, 10/16/18) LATEX (Verified Allergy, Unknown, 10/16/18) Subjective afebrile no leukocytosis no further diarrhea Objective Vital Signs Last 24 Hour Vital Signs Date Time Temp Pulse Resp B/P (MAP) Pulse Ox O2 Delivery O2 Flow Rate FiO2 10/20/18 09:01 140/80 10/20/18 09:00 64 140/80 10/20/18 09:00 64 140/80 10/20/18 08:00 98.2 64 140/80 (100) 10/20/18 00:00 98.3 53 17 135/82 (99) 100 10/19/18 21:00 Room Air 10/19/18 20:42 53 129/72 10/19/18 20:00 98.6 53 18 129/72 (91) 97 10/19/18 16:00 98.3 58 18 122/68 (86) 96 Height (Feet): 5 Height (Inches): 2.00 Weight (Pounds): 170 Objective General Appearance: WD/WN, no apparent distress, alert Cardiovascular: normal rate Respiratory/Chest: normal breath sounds, no respiratory distress Abdominal Exam: normal bowel sounds, non tender, soft Extremities: normal range of motion, non-tender Microbiology Date/Time Source Procedure Growth Status 10/17/18 16:00 Nasopharynx - Final Complete 10/17/18 16:00 Nasopharynx - Final Complete 10/19/18 10:00 Stool Clostridium difficile Toxin Assay - Final Complete 10/17/18 16:00 Rectum VRE Culture - Final NO VANCOMYCIN RESISTANT ENTEROCOCCUS ... Complete Laboratory Tests Test 10/20/18 10:05 White Blood Count 6.9 K/UL (4.8-10.8) Red Blood Count 4.95 M/UL (4.20-5.40) Hemoglobin 13.6 G/DL (12.0-16.0) Hematocrit 42.1 % (37.0-47.0) Mean Corpuscular Volume 85 FL (80-99) Mean Corpuscular Hemoglobin 27.4 PG (27.0-31.0) Mean Corpuscular Hemoglobin Concent 32.2 G/DL (32.0-36.0) Red Cell Distribution Width 14.9 % (11.6-14.8) H Platelet Count 374 K/UL (150-450) Mean Platelet Volume 8.3 FL (6.5-10.1) Neutrophils (%) (Auto) 58.9 % (45.0-75.0) Lymphocytes (%) (Auto) 31.2 % (20.0-45.0) Monocytes (%) (Auto) 6.4 % (1.0-10.0) Eosinophils (%) (Auto) 2.7 % (0.0-3.0) Basophils (%) (Auto) 0.8 % (0.0-2.0) Sodium Level 140 MMOL/L (136-145) Potassium Level 3.7 MMOL/L (3.5-5.1) Chloride Level 104 MMOL/L (98-107) Carbon Dioxide Level 26 MMOL/L (21-32) Anion Gap 10 mmol/L (5-15) Blood Urea Nitrogen 4 mg/dL (7-18) L Creatinine 0.9 MG/DL (0.55-1.30) Estimat Glomerular Filtration Rate > 60 mL/min (>60) Glucose Level 113 MG/DL (74-106) H Calcium Level 9.3 MG/DL (8.5-10.1) Current Medications Medications (Trade) Dose Ordered Sig/Candelaria Route PRN Reason Start Time Stop Time Status Last Admin Dose Admin Acetaminophen (Tylenol) 650 mg Q4H PRN ORAL fever 10/16/18 22:00 11/15/18 21:59 Al Hydroxide/Mg Hydroxide (Mylanta II) 30 ml Q6H PRN ORAL dyspepsia 10/16/18 22:00 11/15/18 21:59 Amlodipine Besylate (Norvasc) 10 mg DAILY ORAL 10/17/18 09:00 11/16/18 08:59 10/20/18 09:00 Amoxicillin/ Clavulanate Potassium (Augmentin) 500 mg Q12HR ORAL 10/17/18 11:00 10/24/18 10:59 10/20/18 09:00 Carvedilol (Coreg) 25 mg EVERY 12 HOURS ORAL 10/17/18 09:00 11/16/18 08:59 10/20/18 09:00 Dextrose (Dextrose 50%) 25 ml Q30M PRN IV Hypoglycemia 10/16/18 22:00 11/15/18 21:59 Dextrose (Dextrose 50%) 50 ml Q30M PRN IV Hypoglycemia 10/16/18 22:00 11/15/18 21:59 Doxycycline Monohydrate (Vibramycin) 100 mg EVERY 12 HOURS ORAL 10/18/18 21:00 10/20/18 23:59 10/20/18 09:00 Furosemide (Lasix) 40 mg DAILY ORAL 10/19/18 09:00 11/18/18 08:59 10/20/18 09:00 Heparin Sodium (Porcine) (Heparin 5000 units/ml) 5,000 units EVERY 12 HOURS SUBQ 10/17/18 09:00 11/16/18 08:59 Lisinopril (Prinivil) 20 mg DAILY ORAL 10/17/18 09:00 11/16/18 08:59 10/20/18 09:01 Methimazole (Tapazole) 10 mg BID ORAL 10/18/18 18:00 11/17/18 17:59 10/20/18 08:59 Morphine Sulfate (Morphine Sulfate) 2 mg Q4H PRN IVP severe Pain (Pain Scale 7-10) 10/16/18 22:00 10/23/18 21:59 10/17/18 20:42 Ondansetron HCl (Zofran) 4 mg Q6H PRN IVP Nausea & Vomiting 10/16/18 22:00 11/15/18 21:59 Pantoprazole (Protonix) 40 mg DAILY IVP 10/17/18 09:00 11/16/18 08:59 10/20/18 08:59 Temazepam (Restoril) 15 mg HSPRN PRN ORAL Insomnia 10/16/18 22:00 10/23/18 21:59 10/20/18 02:14 Leticia Maradiaga M.D. Oct 20, 2018 13:11
--- NOTE | 2018-10-20 14:31 | Surgery Progress Note ---
Surgery Progress Note Subjective Additional Comments doing better. pain resolved. tolerating diet. diarrhea. no n/v/f/c. Objective Last 24 Hour Vital Signs Date Time Temp Pulse Resp B/P (MAP) Pulse Ox O2 Delivery O2 Flow Rate FiO2 10/20/18 12:00 98.2 52 20 123/73 (90) 99 10/20/18 09:01 140/80 10/20/18 09:00 Room Air 10/20/18 09:00 64 140/80 10/20/18 09:00 64 140/80 10/20/18 08:00 98.2 64 140/80 (100) 10/20/18 08:00 98.2 64 20 140/80 (100) 98 10/20/18 00:00 98.3 53 17 135/82 (99) 100 10/19/18 21:00 Room Air 10/19/18 20:42 53 129/72 10/19/18 20:00 98.6 53 18 129/72 (91) 97 10/19/18 16:00 98.3 58 18 122/68 (86) 96 I&O Intake and Output 10/19/18 10/20/18 19:00 07:00 Intake Total 480 ml Balance 480 ml Intake Oral 480 ml # Voids 2 2 # Bowel Movements 2 Cardiovascular: RSR Respiratory: clear Abdomen: soft, non-tender, present bowel sounds, non-distended Extremities: no tenderness, no cyanosis Laboratory Tests Test 10/20/18 10:05 White Blood Count 6.9 K/UL (4.8-10.8) Red Blood Count 4.95 M/UL (4.20-5.40) Hemoglobin 13.6 G/DL (12.0-16.0) Hematocrit 42.1 % (37.0-47.0) Mean Corpuscular Volume 85 FL (80-99) Mean Corpuscular Hemoglobin 27.4 PG (27.0-31.0) Mean Corpuscular Hemoglobin Concent 32.2 G/DL (32.0-36.0) Red Cell Distribution Width 14.9 % (11.6-14.8) H Platelet Count 374 K/UL (150-450) Mean Platelet Volume 8.3 FL (6.5-10.1) Neutrophils (%) (Auto) 58.9 % (45.0-75.0) Lymphocytes (%) (Auto) 31.2 % (20.0-45.0) Monocytes (%) (Auto) 6.4 % (1.0-10.0) Eosinophils (%) (Auto) 2.7 % (0.0-3.0) Basophils (%) (Auto) 0.8 % (0.0-2.0) Sodium Level 140 MMOL/L (136-145) Potassium Level 3.7 MMOL/L (3.5-5.1) Chloride Level 104 MMOL/L (98-107) Carbon Dioxide Level 26 MMOL/L (21-32) Anion Gap 10 mmol/L (5-15) Blood Urea Nitrogen 4 mg/dL (7-18) L Creatinine 0.9 MG/DL (0.55-1.30) Estimat Glomerular Filtration Rate > 60 mL/min (>60) Glucose Level 113 MG/DL (74-106) H Calcium Level 9.3 MG/DL (8.5-10.1) Plan Problems: (1) Colitis (2) Diarrhea (3) Graves disease (4) CHF (congestive heart failure) (5) Hyperthyroidism (6) Leukocytosis (7) Abdominal pain Assessment & Plan: CT noted with Long segment severe inflammatory changes involving loops of the jejunum with marked mucosal thickening with associated narrowing of the lumen. No evidence of associated bowel obstruction at this time. Small amount of ascites is noted without well-defined/drainable fluid collection to suggest abscess. No pneumatosis intestinalis or free intraperitoneal air. Etiology is favored to be infectious orinflammatory. Correlation recommended. Exam stable without any pain or discomfort now leukocytosis improved afebrile, HD stable -okay for diet -AM labs -serial abdominal exams no acute surgical intervention planned will follow with recs d/c planning thank you (8) Vomiting (9) Enteritis (10) Intractable abdominal pain John Camargo Oct 20, 2018 14:31
[2018-10-20] MEDS ORDERED: AZITHROMYC200 MG/5 M ORAL (15:01)
[2018-10-20] MEDS ORDERED: AZITHROMYCIN500 MG ORAL (15:05)
--- NOTE | 2018-10-20 15:28 | NUR ---
NURSE NOTES: Pt discharged in stable condition. No acute distress or SOB. IV and arm band removed. RN reviewed discharge packet with pt. Pt refused to sign belongings sheet stating $40 was removed from her wallet. Charge nurse made aware. Charge nurse met with pt; reviewed that pt signed to decline putting valuables in safe. RN escorted pt with friend to the lobby. Pt was able to ambulate steadily; no weakness noted.
[2018-10-21] MEDS ORDERED: Azithromycin 250mg tab ORAL SCH (09:00)
--- NOTE | 2018-10-21 12:56 | Discharge Summary ---
Discharge Summary Discharge Summary _ DATE OF ADMISSION: 10/16/2018 DATE OF DISCHARGE: 10/21/1999 DISCHARGED BY: Dr. Neil REASON FOR ADMISSION: 38 years old female with past medical history of hypertension , hypothyroidism , congestive heart failure ,was recently admitted to [facility] in October for abdominal pain She was discharged, but continued to have vomiting and watery stools. She was taking antibiotic at that time. Abdominal pain mainly located in her left flank with radiation down into her abdomen and groin. Pain reported as aching and sometimes feel like a spastic , 10 out of 10 on a scale 1-10. Emesis reported as yellow in color. She reported being being feverish and weak. Patient was discharged on Lasix, Bactrim and Keflex , which she took this morning. Upon evaluation vital signs revealed elevated blood pressure 171/92. Chest x-ray demonstrated no radiographic evidence of acute cardiopulmonary disease. Abdominal x-ray was nonspecific , not overtly obstructive bowel gas pattern. CT of the abdomen and pelvis demonstrated diverticulosis without evidence of acute diverticulitis. Severe inflammatory changes , involving loops of the jejunum with marked mucosal thickening with associated narrowing of the lumen. No evidence of associated bowel obstruction at this time. Small amount of ascites noted without drainable fluid collection to suggest abscess. No pneumatosis or free intraperitoneal air. Normal appendix. Apparent bladder wall thickening, likely related to underdistention. Laboratory workup demonstrated leukocytosis with WBC 14, stable hemoglobin and hematocrit, stable electrolytes and renal parameters. Albumin 3.2 9. test was negative. Pro BNP 1155. EKG revealed sinus rhythm, no acute ischemic changes. TSH 0.021. Patient subsequently admitted for further management. CONSULTANTS: pulmonary Dr. Fowler ID specialist Dr. Maradiaga GI specialist Dr. Perera surgery [facility] COURSE: Patient admitted , started on the IV fluids and initially was kept n.p.o. Patient started on broad-spectrum antibiotics. Stool culture was negative. Stool for C. difficile was negative. Patient initially was on antibiotic doxycycline and Augmentin , treatment. Patient started on azithromycin for 3 days for jejunitis as per ID specialist recommendation. Leukocytosis was likely reactive. Leukocytosis resolved, no fevers Abdominal ultrasound demonstrated trace ascites, no gallstones or sonographic evidence to suggest acute cholecystitis. Diet was slowly started and advanced as tolerated. Oral hydration was encouraged. Patient was continued on the IV fluids. Patient started on GI prophylaxis. CT of the abdomen revealed jejunitis. Abdominal pain and vomiting were likely in the setting of dehydration. Per GI specialist, no conclusive evidence that patient had a Crohn disease, possible Campylobacter. Patient will need outpatient MRI study , once stable. Surgeon followed. Per surgeon, no acute surgical intervention was required at this time. [employer] followed. Patient had a Graves' disease. Patient presented with thyrotoxicosis with diffuse goiter without thyrotoxic crisis or storm. Patient not a candidate for radioactive iodine due to Graves' eye disease. Patient was started on Tapazole 10 mg twice daily. Patient will need close follow-up with dialer as outpatient . Blood pressure was managed with r current antihypertensive regimen and remained stable. DVT and GI prophylaxis provided. Patient was on maintenance dose of Lasix with close monitoring of volumes and cardiorenal parameters. Pain management and addressed , and pain was controlled. Supportive care provided. Symptomatic treatment with antiemetic provided as needed. Patient clinically stabilized and was ready for discharge home . Patient will need outpatient MRI as recommended by GI specialist. FINAL DIAGNOSES: Jejunitis Possible Campylobacter Possible Crohn's disease Colitis Diarrhea- stool C dif negative Intractable abdominal pain and vomiting in setting of dehydration -resolved Hypertension Graves' disease DISCHARGE MEDICATIONS: See Medication Reconciliation list. DISCHARGE INSTRUCTIONS: Patient was discharged home . Follow up with primary care provider in one week. I have been assigned to dictate discharge summary for this account. I was not involved in the patient's management. Kirsten Blum NP Oct 21, 2018 12:56
== END 2018-10-20 15:05 | disposition home or self-care (01) | DRG 248 ==
LOC: EDBD 17:36 → EMR 18:10 → 4E 19:57 → EDBEDREQ 20:34
DX: A04.8 Other specified bacterial intestinal infections (principal); I11.0 Hypertensive heart disease with heart failure; I50.9 Heart failure, unspecified; K50.00 Crohn's disease of small intestine without complications; K52.9 Noninfective gastroenteritis and colitis, unspecified; E86.0 Dehydration; E05.00 Thyrotoxicosis with diffuse goiter without thyrotoxic crisis or storm; Z88.8 Allergy status to other drugs, medicaments and biological substances; Z91.040 Latex allergy status; K57.90 Diverticulosis of intestine, part unspecified, without perforation or abscess without bleeding
CPT/HCPCS: 36415; 71045; 74018; 74177; 76700; 80048; 80053; 81003; 82150; 83690; 83880; 84443; 84703; 85007; 85025; 85610; 85651; 85730; 86140; 86710; 87045; 87081; 87324; 93005; 93306; 96361; 96365; 96375; 96376; 99285; J2405; J2765